=== PATIENT | male | born 1970 | race Caucasian/White ===

== ENCOUNTER 2017-01-26 10:03 | Observation (INO) | payer SELFPAY ==
[2017-01-26] MEDS ORDERED: SUCCINYLCHOLINE CHLORIDE INJ 200 MG/10 ML VIAL ONE (10:11)
[2017-01-26] MEDS ORDERED: DEXAMETHASONE SOD PHOSPHATE INJ 4 MG/1 ML VIAL ONE (10:11)
[2017-01-26] MEDS ORDERED: METOCLOPRAMIDE HCL INJ/PF 10 MG/2 ML SDV ONE (10:11)
[2017-01-26] MEDS ORDERED: NEOSTIGMINE METHYLSULFATE 10 MG/10 ML VIAL ONE (10:11)
[2017-01-26] MEDS ORDERED: KETOROLAC TROMETHAMINE 60 MG/2 ML SDV ONE (10:11)
[2017-01-26] MEDS ORDERED: ROCURONIUM BROMIDE INJ 50 MG/5 ML VIAL IV ONE (10:11)
[2017-01-26] MEDS ORDERED: GLYCOPYRROLATE INJ 0.4 MG/2 ML VIAL ONE (10:11)
[2017-01-26] MEDS ORDERED: ONDANSETRON HCL INJ/PF 4 MG/2 ML SDV ONE (10:11)
[2017-01-26] MEDS ORDERED: LIDOCAINE 2% INJ-PF (20 MG/ML) 10 ML AMPUL ONE (10:11)
--- NOTE | 2017-01-26 10:14 | ER Document Report ---
ED Medical Screen (RME) - General Stated Complaint: ABDOMINAL PAIN Mode of Arrival: Ambulatory Information source: Patient Notes: c/o RUQ abdominal pain that started yesterday at 3 pm that went away and came back. Pain radiates to his back. +vomiting, +blood in vomit, +difficulty breathing, +diarrhea (non-bloody) tried omeprazole, ranitidine, maalox, pepto bismol which is not providing relief. Hx of GERD, told last visit here he had an ulcer, believes it's breathing I have greeted and performed a rapid initial assessment of this patient. A comprehensive ED assessment and evaluation of the patient, analysis of test results and completion of the medical decision making process will be conducted by additional ED providers. TRAVEL OUTSIDE OF THE [place] IN LAST 30 DAYS: No - Related Data Allergies/Adverse Reactions: No Known Allergies Allergy (Verified 01/26/17 10:08) Past Medical History - Past Medical History Cardiac Medical History: Reports: Hx Hypertension Neurological Medical History: Reports: Hx Seizures Past Surgical History: Reports: Hx Appendectomy Physical Exam - Notes Notes: Abdomen: TTP in RUQ with voluntary guarding, remaining abdomen soft with mild TTP
[2017-01-26 10:34] LABS: ABSOLUTE EOSINOPHILS # (AUTO) 0.2 10^3/uL (0.0-0.6); ABSOLUTE LYMPHOCYTES (AUTO) 1.7 10^3/uL (0.5-4.7); ABSOLUTE MONOCYTES (AUTO) 0.7 10^3/uL (0.1-1.4); ABSOLUTE NEUT (AUTO) 4.4 10^3/uL (1.7-8.2); BASOPHILS % (AUTO) 0.4 % (0-2); EOSINOPHILS % (AUTO) 3.5 % (0-6); HEMATOCRIT 43.7 % (37.9-51.0); HEMOGLOBIN 14.7 g/dL (13.5-17.0); HGB HCT DIFFERENCE 0.4; LYMPHOCYTES % (AUTO) 23.4 % (13-45); MEAN CORPUSCULAR HEMOGLOBIN 29.1 pg (27.0-33.4); MEAN CORPUSCULAR HGB CONC 33.7 g/dL (32.0-36.0); MEAN CORPUSCULAR VOLUME 86 fl (80-97); MONOCYTES % (AUTO) 10.4 % (3-13); RED BLOOD COUNT 5.06 10^6/uL (4.35-5.55); RED CELL DISTRIBUTION WIDTH 13.3 % (11.5-14.0); SEGMENTED NEUTROPHILS % (AUTO) 62.3 % (42-78)
[2017-01-26 10:40] LABS: APPEARANCE,URINE CLEAR; BILIRUBIN,URINE NEGATIVE (NEGATIVE); GLUCOSE, URINE NEGATIVE (NEGATIVE); KETONES,URINE NEGATIVE (NEGATIVE); LEUKOCYTE ESTERASE,URINE MODERATE (NEGATIVE); NITRITE,URINE NEGATIVE (NEGATIVE); PROTEIN,URINE NEGATIVE (NEGATIVE); URINE SPECIFIC GRAVITY 1.009; UROBILINOGEN,URINE NEGATIVE mg/dL (<2.0)
[2017-01-26 10:58] LABS: ALANINE AMINOTRANSFERASE 39 U/L (21-72); ALBUMIN 4.4 g/dL (3.5-5.0); ALKALINE PHOSPHATASE 91 U/L (38-126); ANION GAP 12 (5-19); ASPARTATE AMINO TRANSFERASE 19 U/L (17-59); BILIRUBIN,TOTAL 0.5 mg/dL (0.2-1.3); BLOOD UREA NITROGEN 12 mg/dL (7-20); CALCIUM 10.3 mg/dL (8.4-10.2); CARBON DIOXIDE 27 mmol/L (22-30); CHLORIDE 102 mmol/L (98-107); CREATININE RESULT 1.42 mg/dL (0.52-1.25); GLUCOSE 100 mg/dL (75-110); LIPASE 146.3 U/L (23-300); SODIUM 140.7 mmol/L (137-145); TOTAL PROTEIN 7.6 g/dL (6.3-8.2)
[2017-01-26] MEDS ORDERED: POTASSI CL 20 MEQ/D5-1/2NS 1L 1,000 ML IV PRN (13:03)
--- NOTE | 2017-01-26 13:31 | ER Document Report ---
ED General - General Chief Complaint: Abdominal Pain Stated Complaint: ABDOMINAL PAIN Mode of Arrival: Ambulatory TRAVEL OUTSIDE OF THE [place] IN LAST 30 DAYS: No - HPI Patient complains to provider of: abdominal pain Notes: Patient coming in for right upper quadrant abdominal pain ongoing since night prior to arrival with nausea vomiting patient states occurred last night after eating fried chicken. Patient states history of having abdominal pain similar to this in the past. Patient denies any fevers chills diarrhea. Denies any trauma to the area. Patient states most of his not consistent fried fish fried chicken - Related Data Allergies/Adverse Reactions: No Known Allergies Allergy (Verified 01/26/17 10:08) Home Medications: Current Home Medications Omeprazole 20 mg PO DAILY 01/26/17 [History] Past Medical History - General Information source: Patient - Social History Smoking Status: Never Smoker Chew tobacco use (# tins/day): No Frequency of alcohol use: None Drug Abuse: None Family History: Reviewed & Not Pertinent Patient has suicidal ideation: No Patient has homicidal ideation: No - Past Medical History Cardiac Medical History: Reports: Hx Hypertension Neurological Medical History: Reports: Hx Seizures Renal/ Medical History: Denies: Hx Peritoneal Dialysis GI Medical History: Reports: Hx Gastroesophageal Reflux Disease Past Surgical History: Reports: Hx Appendectomy - Immunizations Hx Diphtheria, Pertussis, Tetanus Vaccination: No Review of Systems - Review of Systems Constitutional: No symptoms reported EENT: No symptoms reported Cardiovascular: No symptoms reported Respiratory: No symptoms reported Gastrointestinal: Abdominal pain, Nausea, Vomiting Genitourinary: No symptoms reported Male Genitourinary: No symptoms reported Musculoskeletal: No symptoms reported Skin: No symptoms reported Hematologic/Lymphatic: No symptoms reported Neurological/Psychological: No symptoms reported -: Yes All other systems reviewed and negative Physical Exam - Vital signs Vitals: Temp Pulse Resp BP Pulse Ox 97.4 F 79 16 157/111 H 98 01/26/17 10:09 01/26/17 10:09 01/26/17 10:01/26/17 10:01/26/17 10:09 Interpretation: Normal - General General appearance: Appears well, Alert - HEENT Head: Normocephalic, Atraumatic Eyes: Normal Pupils: PERRL - Respiratory Respiratory status: No respiratory distress Chest status: Nontender Breath sounds: Normal Chest palpation: Normal - Cardiovascular Rhythm: Regular Heart sounds: Normal auscultation Murmur: No - Abdominal Inspection: Normal Distension: No distension Bowel sounds: Normal Tenderness: Tender - Right upper quadrant, Mcintyre's sign, Guarding - Voluntary. No: McBurney's point, Rebound Organomegaly: No organomegaly - Back Back: Normal, Nontender - Extremities General upper extremity: Normal inspection, Nontender, Normal color, Normal ROM , Normal temperature General lower extremity: Normal inspection, Nontender, Normal color, Normal ROM , Normal temperature, Normal weight bearing. No: Austen's sign - Neurological Neuro grossly intact: Yes Cognition: Normal Orientation: AAOx4 [place] Coma Scale Eye Opening: Spontaneous [place] Coma Scale Verbal: Oriented [place] Coma Scale Motor: Obeys Commands [place] Coma Scale Total: 15 Speech: Normal Motor strength normal: LUE, RUE, LLE, RLE Sensory: Normal - Psychological Associated symptoms: Normal affect, Normal mood - Skin Skin Temperature: Warm Skin Moisture: Dry Skin Color: Normal Course - Re-evaluation Re-evalutation: 01/26/17 13:[address] scan of the abdomen shows gallstones more likely patient is having right upper quadrant pain due to his continued diet out fried food. Patient continues to have pain. I did discuss the results of the CAT scan showing hydronephrosis due to a indwelling ureteral stent patient states has been there for 5 years. Discuss with [facility] urology Dr. Pagan who states that he would be glad to see the patient in follow-up as outpatient. I did contact surgeon on-call currently waiting for his arrival and evaluation of the patient. 01/26/17 14:01 Surgeon states would take the patient to surgery to have his gallbladder removed. Patient should follow-up with the stated urologist Dr. Rafal Pagan of [facility] urology Address: [address] [place] [id number] For further evaluation of his ureteral stent. 01/26/17 18:33 - Vital Signs Vital signs: Temp Pulse Resp BP Pulse Ox 97.8 F 60 18 124/94 H 95 01/26/17 18:10 01/26/17 18:10 01/26/17 18:10 01/26/17 18:10 01/26/17 18:10 - Laboratory Result Diagrams: 01/26/17 10:17 01/26/17 10:17 Laboratory results interpreted by me: 01/26/17 01/26/17 10:17 10:17 Creatinine 1.42 H Est GFR (Non-Af Amer) 53 L Calcium 10.3 H Urine Blood SMALL H Ur Leukocyte Esterase MODERATE H Discharge - Discharge Clinical Impression: Recurrent biliary colic, indwelling ureter stent Condition: Good Disposition: ADMITTED OBSERVATION Admitting Provider: Surgicalist - [facility] Admitted: OR
[2017-01-26] MEDS ORDERED: NORMAL SALINE 1000 ML 1,000 ML IV ONE ×2 (13:58→17:17)
[2017-01-26] MEDS ORDERED: CEFAZOLIN 2 GM/D5W RTU 50 ML IV ONE (13:58)
[2017-01-26] MEDS ORDERED: BUPIVACAINE HCL 0.25% /EPINEPHRINE INJ/PF 30 ML SDV ONE (14:21)
[2017-01-26] MEDS ORDERED: ONDANSETRON HCL INJ/PF 4 MG/2 ML SDV IV PRN ×2 (14:35→17:00)
[2017-01-26] MEDS ORDERED: FENTANYL CITRATE INJ/PF 100 MCG/2 ML AMPUL IV PRN ×3 (14:35)
[2017-01-26] MEDS ORDERED: DIPHENHYDRAMINE HCL 50 MG/ML VIAL IV PRN (14:35)
[2017-01-26] MEDS ORDERED: PROMETHAZINE HCL INJ 25 MG/1 ML VIAL IV PRN ×2 (14:35)
[2017-01-26] MEDS ORDERED: MORPHINE SULFATE 10 MG/ML INJ IV PRN ×2 (14:35→17:00)
[2017-01-26] MEDS ORDERED: MEPERIDINE HCL/PF INJ 25 MG/1 ML DISP.SYRIN IV PRN (14:35)
[2017-01-26] MEDS ORDERED: FENTANYL CITRATE INJ/PF 250 MCG/5 ML AMPULE ONE (15:02)
[2017-01-26] MEDS ORDERED: PROPOFOL INJ 200 MG/20 ML VIAL IV ONE (15:03)
[2017-01-26] MEDS ORDERED: DEXMEDETOMIDINE INJ 80 MCG/20 ML VIAL IV ONE (15:03)
[2017-01-26] MEDS ORDERED: MIDAZOLAM 2 MG/2 ML INJ ONE (15:03)
[2017-01-26] MEDS ORDERED: EPHEDRINE SULFATE INJ 50 MG/1 ML AMPULE ONE (15:03)
[2017-01-26] MEDS ORDERED: ACETAMINOPHEN 100 ML IV ONE (15:03)
--- NOTE | 2017-01-26 15:07 | HISTORY AND PHYSICAL E ---
History and Physical NAME: TIA BROUSSARD : 1970 AGE: 46Y ADMITTED: 01/26/2017 ROOM: ED19 HISTORY OF PRESENT ILLNESS: The patient is a 46-year-old gentleman who presents with a chief complaint of right upper quadrant abdominal pain exacerbated by fatty meals which are his staple. He presented to the emergency department with increasing abdominal pain which began last evening and would not radha. He has not eaten since last evening. He has had multiple episodes of this right upper quadrant abdominal pain. He denies jaundice, jumana-colored stools or colored urine. PAST MEDICAL HISTORY: Significant for: 1. Lithotripsy approximately 5 or 6 years ago and he still has a ureteral stent in place and the emergency room physician here has consulted with a urologist who has agreed to see the patient subsequently for discussion of removal of this ureteral stent. 2. History of seizures which he states have not occurred since he was 16 years old. 3. History also of acid reflux for which he takes omeprazole. He states that at some time in the last few years, someone has looked at his stomach and prescribed omeprazole. ALLERGIES: No known medical allergies. FAMILY AND SOCIAL HISTORY: Otherwise noncontributory. 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 REVIEW OF SYSTEMS: The patient denies any problems with his head, neck, ears, throat, chest, cardiac, pulmonary or neurologic disease. 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 However, this has not caused him any problems throughout life. MEDICATIONS: Omeprazole is the only medication taken at home. PHYSICAL EXAMINATION: GENERAL: A pleasant gentleman in no acute distress. He is markedly uncomfortable regarding his right upper quadrant. HEAD AND NECK: Grossly unremarkable. CHEST: Clear to auscultation and percussion. CARDIAC: Exam is without murmur, gallop, or rub. ABDOMEN: Soft. Markedly tender in the right upper quadrant with positive rebound, but no evidence of diffuse peritonitis. There is a well-healed low midline laparotomy scar status post perforated appendicitis. Examination otherwise unremarkable. EXTREMITIES: There is some slight disparity in calf size with the left being slightly smaller than the right, but again the patient has no evidence of motor or neurologic or vascular deficit. DATA BASE: White count 7000, hemoglobin 14.7, hematocrit 43.7. Sodium 147, potassium 5, chloride 102, CO2 of 27, BUN 12, creatinine 1.42. Liver function studies and lipase are within normal limits. The patient has a gallbladder ultrasound performed today which reveals cholelithiasis with no evidence of pericholecystic fluid or wall thickening. This is corroborated by CT scan today which reveals again cholelithiasis without overt inflammatory change. Incidentally again noted is the left ureteral stent and again, this has been addressed by the emergency room physician and arrangements are being made to have this removed by urologist in outpatient setting soon. IMPRESSION: A 46-year-old gentleman with acute and chronic cholelithiasis causing increasing right upper quadrant abdominal pain. RECOMMENDATION AND PLAN: The recommendation and plan at this time is for laparoscopic possible open cholecystectomy. The patient understands the risks and alternatives of laparoscopic and possible open cholecystectomy and wishes to proceed. He received 2 g of Ancef preoperatively, mechanical prophylaxis for DVT is in progress and the patient will receive Protonix in the perioperative period. DICTATING PHYSICIAN: SINDY MURRAY M.D. [id number] PHY#: [id number] ID: [id number] JOB#: [id number] ACCT: [id number] cc:Zechariah PA MD, M.D. >
--- NOTE | 2017-01-26 15:07 | HISTORY AND PHYSICAL E ---
History and Physical NAME: TIA BROUSSARD : 1970 AGE: 46Y ADMITTED: 01/26/2017 ROOM: ED19 HISTORY OF PRESENT ILLNESS: The patient is a 46-year-old gentleman who has had intermittent and increasing frequency abdominal pain in the right quadrant, especially after eating fried foods which are his staple. He presented to the emergency department where ultrasound collaborates suspicion of cholelithiasis. He is having increasing pain since yesterday and has not eaten since last evening. He denied history of fever or chills. He states he has had END OF DICTATION interrupted see second dictation DICTATING PHYSICIAN: SINDY MURRAY M.D. [id number] PHY#: [id number] ID: [id number] JOB#: [id number] ACCT: [id number] cc:Zechariah PA MD, M.D. > MTDD
[2017-01-26] MEDS ORDERED: CEFAZOLIN INJ 1 GM VIAL ONE (15:34)
[2017-01-26] MEDS ORDERED: ALBUTEROL SULFATE HFA (90 MCG/PUFF) 200 PUFF/8.5 GM MDI IH ONE (15:35)
--- NOTE | 2017-01-26 17:53 | OPERATIVE REPORT E ---
Operative Report NAME: TIA BROUSSARD : 1970 AGE: 46Y DATE OF SURGERY: 01/26/2017 ROOM: ED19 PREOPERATIVE DIAGNOSES: 1. Cholelithiasis. 2. Cholecystitis. POSTOPERATIVE DIAGNOSES: 1. Cholelithiasis. 2. Cholecystitis. OPERATION: Laparoscopic cholecystectomy. SURGEON: LESLYE MURRAY M.D. ANESTHESIA: General via endotracheal tube. PROCEDURE: The patient was taken to the operating room after informed consent, positive identification, and time-out. The abdomen was prepped and draped in the standard fashion with the patient under general endotracheal inhalational anesthesia and entered through a 2 cm incision above the umbilicus and carried down through the deep tissues with Metzenbaum scissors and Bovie cautery. The fascia was entered and the peritoneum was entered and the abdominal cavity was digitally explored. There were adhesions inferior to the incision site but none at the site of the incisions. A Bryan cannula placed into the abdomen and insufflated with CO2 with the Bryan secured to the #1 Prolene pursestring suture. The camera was inserted and 3 of the trocars were placed in the right upper quadrant under direct visual observation. The scope was placed into the superior subxiphoid port, and inspection of the insertion site was noted. There was no injury to the surrounding tissues though there were adhesion of small bowel inferior to the port site. The patient was placed in the left shoulder down Trendelenburg position, and the gallbladder able to be freed of multiple fatty omental cakes by positioning and gently moving the omentum inferiorly. This provided access to the gallbladder which was placed under traction in the right upper abdomen. The neck of the gallbladder was localized and then working from the neck of the gallbladder to the midline, the cystic duct and cystic arteries were localized and dissected freed, positively identified, circumferentially dissected, and the critical view was assured. The cystic duct and cystic artery were divided in continuity with hemoclips, 3 proximally and 2 distally and the gallbladder was excised with the Bovie cautery and removed through the subxiphoid port into the EndoCatch bag. The wound was irrigated with copious amounts of saline solution. Sponge and needle counts were correct. The trocar sites were closed with #1 Prolene sutures. The skin was closed with geovanna after the deep tissues were injected with 0.25% Marcaine with epinephrine solution. Meticulous hemostasis was assured. The dressing was placed and before the patient was removed from the operating room it was noted that there was bleeding from a 5 mm port site. This was stayed with pressure and then using a sterile technique and Betadine solution a 3-0 nylon [id number] suture was used over this port site and again hemostasis was assured. The patient was taken to the recovery room in satisfactory condition. ESTIMATED BLOOD LOSS: Approximately 20 mL. COUNTS: Sponge and needle counts were correct. DICTATING PHYSICIAN: SINDY MURRAY M.D. [id number] PHY#: [id number] ID: [id number] JOB#: [id number] ACCT: [id number] cc:LESLYE MURRAY M.D. > MTDD
[2017-01-26] MEDS: PANTOPRAZOLE SODIUM 40 MG VIAL IV SCH (22:17)
[2017-01-26] MEDS: OXYCODONE-ACETAMINOPHEN 5-325 MG TABLET PO PRN (22:36)
[2017-01-27] MEDS: OXYCODONE-ACETAMINOPHEN 5-325 MG TABLET PO PRN (03:13)
[2017-01-27] MEDS: PANTOPRAZOLE SODIUM 40 MG VIAL IV SCH (09:21)
[2017-01-27] MEDS ORDERED: MAG HYDROX/AL HYDROX/SIMETH SUSP 30 ML UDCUP PO ONE (12:00)
[2017-01-27 12:55] VITALS: BP 124/69
--- NOTE | 2017-01-27 13:18 | DISCHARGE SUMMARY E ---
Discharge Summary NAME: TIA BROUSSARD : 1970 AGE: 46Y ADMITTED: 01/26/2017 DISCHARGED: 01/27/2017 ADMITTING DIAGNOSIS: Acute cholecystitis and cholelithiasis. DISCHARGE DIAGNOSIS: Status post laparoscopic cholecystectomy. HOSPITAL COURSE: Hospital course was unremarkable. He was taken the operating room from the emergency department and laparoscopic cholecystectomy was undertaken without complication. On the morning of discharge he is active and ambulatory, tolerating a regular diet, and wishing to be discharged. He has some ongoing medical problems including a ureteral stent which has been in place in the left ureteropelvic junction for 5 years. Arrangements were made by the emergency physician doctor to have the patient seen in consultation by a urologist, and the patient is provided with this information. He also has an ongoing problem of acid reflux and states that he frequently will vomit but denies vomiting up blood. He is taking omeprazole and received Protonix prophylaxis during his hospital stay. He is advised to follow up with his family physician and arrangements have been previously made for this. At the time of discharge, again he is active and ambulatory without any complication related to his cholecystitis. He will be seen in the office with Dr. Jeffery in approximately 1 week. He was provided with a prescription for Percocet for analgesia and understanding he should not drive while taking this medication. He is aware he may contact us immediately should he have any questions or problems. DICTATING PHYSICIAN: SINDY MURRAY M.D. [id number] PHY#: [id number] ID: [id number] JOB#: [id number] ACCT: [id number] cc:[facility], LESLYE MENDOZA MD, M.D, M.D., E. R. >
== END 2017-01-27 13:00 | disposition home or self-care (01) ==
LOC: OROUT 10:03 → EH 13:03 → INTOOBSV 14:44 → EH 14:44 → UNDOADMOB 14:44 → 4S 17:59
PROC: 3E033GC Introduction of Other Therapeutic Substance into Peripheral Vein, Percutaneous Approach (ICD-10-PCS; 2017-01-26)
PROC: 3E033GC Introduction of Other Therapeutic Substance into Peripheral Vein, Percutaneous Approach (ICD-10-PCS; 2017-01-26)
PROC: 0FT44ZZ Resection of Gallbladder, Percutaneous Endoscopic Approach (ICD-10-PCS; principal; 2017-01-26 15:00)
DX: K80.12 Calculus of gallbladder with acute and chronic cholecystitis without obstruction (principal); K21.9 Gastro-esophageal reflux disease without esophagitis; I10 Essential (primary) hypertension
CPT/HCPCS: 99285; 96365; 96366; 36415; 83690; 85025; 80053; 81001; 88304 ×2; 76705; 74176; 94799 ×2; 47562; J2250; J3490 ×5; J0690; J1100; J1885; J3010; J2765; J2270; J3480; S0164 ×2; J0330; J2405 ×2; J7030; J2704; J0131; 790

== ENCOUNTER 2017-02-01 10:39 | Observation (INO) | payer SELFPAY ==
--- NOTE | 2017-02-01 10:49 | ER Document Report ---
ED Medical Screen (RME) - General Stated Complaint: ABDOMINAL PAIN Notes: 46 yo male c/o mid abdominal pain since this morning. pt is 7 days s/p sergio ( suregery done here @ [facility]) has been having mild pain since surgery, but pain acutely intensified this morning. + nausea, no vomiting. decreased urinary output. no fever. abdomen is soft with generalized tenderness. echymosis noted at laproscopic incision sites. TRAVEL OUTSIDE OF THE [place] IN LAST 30 DAYS: No - Related Data Allergies/Adverse Reactions: No Known Allergies Allergy (Verified 01/26/17 10:08) Past Medical History - Past Medical History Cardiac Medical History: Reports: Hx Hypertension Neurological Medical History: Reports: Hx Seizures Renal/ Medical History: Denies: Hx Peritoneal Dialysis GI Medical History: Reports: Hx Gastroesophageal Reflux Disease Psychiatric Medical History: Reports: Hx Depression Past Surgical History: Reports: Hx Appendectomy - Immunizations Hx Diphtheria, Pertussis, Tetanus Vaccination: No Physical Exam - Vital signs Vitals: Temp Pulse Resp BP Pulse Ox 97.5 F 78 16 137/98 H 98 02/01/17 10:42 02/01/17 10:42 02/01/17 10:42 02/01/17 10:42 02/01/17 10:42 Course - Vital Signs Vital signs: Temp Pulse Resp BP Pulse Ox 97.5 F 78 16 137/98 H 98 02/01/17 10:42 02/01/17 10:42 02/01/17 10:42 02/01/17 10:42 02/01/17 10:42
[2017-02-01 11:20] LABS: APPEARANCE,URINE CLEAR; BILIRUBIN,URINE NEGATIVE (NEGATIVE); GLUCOSE, URINE NEGATIVE (NEGATIVE); KETONES,URINE NEGATIVE (NEGATIVE); LEUKOCYTE ESTERASE,URINE MODERATE (NEGATIVE); NITRITE,URINE NEGATIVE (NEGATIVE); PROTEIN,URINE 30 mg/dL (NEGATIVE); URINE SPECIFIC GRAVITY 1.012; UROBILINOGEN,URINE NEGATIVE mg/dL (<2.0)
[2017-02-01 11:23] LABS: ABSOLUTE EOSINOPHILS # (AUTO) 0.2 10^3/uL (0.0-0.6); ABSOLUTE LYMPHOCYTES (AUTO) 1.2 10^3/uL (0.5-4.7); ABSOLUTE MONOCYTES (AUTO) 0.6 10^3/uL (0.1-1.4); ABSOLUTE NEUT (AUTO) 4.2 10^3/uL (1.7-8.2); BASOPHILS % (AUTO) 0.4 % (0-2); EOSINOPHILS % (AUTO) 2.9 % (0-6); HEMATOCRIT 43.3 % (37.9-51.0); HEMOGLOBIN 14.6 g/dL (13.5-17.0); HGB HCT DIFFERENCE 0.5; MEAN CORPUSCULAR HEMOGLOBIN 29.1 pg (27.0-33.4); MEAN CORPUSCULAR HGB CONC 33.6 g/dL (32.0-36.0); MEAN CORPUSCULAR VOLUME 87 fl (80-97); MONOCYTES % (AUTO) 9.6 % (3-13); SEGMENTED NEUTROPHILS % (AUTO) 67.1 % (42-78); WHITE BLOOD COUNT 6.2 10^3/uL (4.0-10.5)
[2017-02-01 11:43] LABS: ALBUMIN 4.3 g/dL (3.5-5.0); ALKALINE PHOSPHATASE 303 U/L (38-126); ANION GAP 11 (5-19); ASPARTATE AMINO TRANSFERASE 684 U/L (17-59); BILIRUBIN,DIRECT 0.8 mg/dL (0.0-0.3); BILIRUBIN,TOTAL 2.9 mg/dL (0.2-1.3); BLOOD UREA NITROGEN 12 mg/dL (7-20); CALCIUM 10.6 mg/dL (8.4-10.2); CARBON DIOXIDE 25 mmol/L (22-30); CHLORIDE 102 mmol/L (98-107); CREATININE RESULT 1.18 mg/dL (0.52-1.25); GLUCOSE 101 mg/dL (75-110); LIPASE 187.7 U/L (23-300); POTASSIUM 4.3 mmol/L (3.6-5.0); SODIUM 138.1 mmol/L (137-145); TOTAL PROTEIN 7.6 g/dL (6.3-8.2)
[2017-02-01 11:50] LABS: ALANINE AMINOTRANSFERASE 1018 U/L (21-72)
[2017-02-01] MEDS ORDERED: NORMAL SALINE 1000 ML 1,000 ML IV ONE (12:20)
--- NOTE | 2017-02-01 12:31 | ER Document Report ---
ED GI/ - General Chief Complaint: Abdominal Pain Stated Complaint: ABDOMINAL PAIN Notes: Patient is complaining of severe pain of his abdomen when he awakened this morning. Patient had his gallbladder removed by laparoscopic procedure here 6 days ago, last . Current pain is on the right side of his abdomen. Denies fever. Has had nausea but not vomiting. Some diarrhea, the last time was yesterday evening. Seemed to be doing well except he hasn't had an appetite and not eating because the food didn't seem to settle right on his stomach. Has noticed his urine appears darker and it's hard to get urine flow.. TRAVEL OUTSIDE OF THE [place] IN LAST 30 DAYS: No - Related Data Allergies/Adverse Reactions: No Known Allergies Allergy (Verified 02/01/17 10:46) Past Medical History - Social History Smoking Status: Never Smoker Chew tobacco use (# tins/day): No Frequency of alcohol use: None Drug Abuse: None Family History: Reviewed & Not Pertinent Patient has suicidal ideation: No Patient has homicidal ideation: No - Past Medical History Cardiac Medical History: Reports: Hx Hypertension Neurological Medical History: Reports: Hx Seizures Renal/ Medical History: Reports: Hx Kidney Stones - Had surgery GI Medical History: Reports: Hx Gastroesophageal Reflux Disease Psychiatric Medical History: Reports: Hx Depression Past Surgical History: Reports: Hx Appendectomy - Ruptured, Hx Cholecystectomy, Hx Herniorrhaphy, Other - For kidney stone - Immunizations Hx Diphtheria, Pertussis, Tetanus Vaccination: Yes Review of Systems - Review of Systems Notes: REVIEW OF SYSTEMS: CONSTITUTIONAL : Denies fever. EENT: Denies eye, ear, nose or mouth or throat pain or other symptoms. CARDIOVASCULAR: Denies chest pain. RESPIRATORY: Denies cough, chest congestion, or shortness of breath. GASTROINTESTINAL: See history of present illness. GENITOURINARY: Has difficulty urinating. Urine amount has been decreased and color is darker.. MUSCULOSKELETAL: Denies back or neck pain. Denies joint pain or swelling. SKIN: Denies rash or skin lesions. Bruising from recent laparoscopic surgery. NEUROLOGICAL: Denies LOC or altered mental status. Denies headache. Denies sensory loss or motor deficits. ALL OTHER SYSTEMS REVIEWED AND NEGATIVE. Physical Exam - Vital signs Vitals: Temp Pulse Resp BP Pulse Ox 97.5 F 78 16 137/98 H 98 02/01/17 10:42 02/01/17 10:42 02/01/17 10:42 02/01/17 10:42 02/01/17 10:42 Interpretation: Normal - Notes Notes: PHYSICAL EXAMINATION: GENERAL: Well-appearing, in no acute distress. Appears uncomfortable, declines pain medicines. Vital signs are all normal. HEAD: Atraumatic, normocephalic. NECK: Normal range of motion, supple. LUNGS: Breath sounds clear and equal bilaterally. HEART: Regular rate and rhythm without murmurs. ABDOMEN: Incisions from recent laparoscopic surgery. Significant bruising around the site in the epigastrium and in the lower mid abdomen. Tender mostly on the right side of the abdomen. No masses felt. No guarding. No bruits heard. BACK: No tenderness throughout entire back. EXTREMITIES: Normal range of motion without pain. NEUROLOGICAL: Normal speech, normal gait. Normal sensory, motor, and reflex exams. Awake, alert, and oriented x3. SKIN: Warm, dry, no rashes. Course - Re-evaluation Re-evalutation: 02/01/17 13:37 Discussed appropriate studies with the surgeon quality control assessor, Dr. Arteaga, and ordered a CT scan with IV contrast. 02/01/17 16:50 CT scan did not show any fluid accumulation or any other abnormality except postsurgical changes. We were going to order an MRI to look for a retained stone in the bile duct, but the patient still has his abdominal wall metal geovanna. There was concern that these geovanna might become overheated. In the meantime, Dr. Jeffery spoke with Dr. Arteaga and then spoke with Dr. Saab, who agreed to do an ERCP on the patient. So, the patient is going to be admitted for that procedure and not get the MRI. - Vital Signs Vital signs: Temp Pulse Resp BP Pulse Ox 97.5 F 78 16 137/98 H 98 02/01/17 10:42 02/01/17 10:42 02/01/17 10:42 02/01/17 10:42 02/01/17 10:42 - Laboratory Result Diagrams: 02/01/17 10:50 02/01/17 10:50 Laboratory results interpreted by me: 02/01/17 02/01/17 10:50 10:55 Calcium 10.6 H Total Bilirubin 2.9 H Direct Bilirubin 0.8 H AST 684 H ALT 1018 H Alkaline Phosphatase 303 H Urine Protein 30 H Urine Blood LARGE H Ur Leukocyte Esterase MODERATE H - Diagnostic Test Radiology reviewed: Image reviewed, Reports reviewed - CT scan of the abdomen and pelvis showed no abnormality, specifically no fluid accumulation. Discharge - Discharge Clinical Impression: Elevated LFTs Abdominal pain Qualifiers: Abdominal location: generalized Qualified Code(s): R10.84 - Generalized abdominal pain Condition: Stable Disposition: ADMITTED OBSERVATION Admitting Provider: Surgicalist Unit Admitted: Surgical Floor
[2017-02-01] MEDS: CEFAZOLIN 1 GM/D5W RTU 50 ML IV SCH (18:29)
[2017-02-01] MEDS ORDERED: NORMAL SALINE 1000 ML 1,000 ML IV PRN (22:31)
[2017-02-01] MEDS ORDERED: ONDANSETRON HCL INJ/PF 4 MG/2 ML SDV IV PRN (22:31)
[2017-02-01] MEDS ORDERED: HYDROMORPHONE HCL INJ/PF 2 MG/ML AMPULE IV PRN ×2 (22:35)
--- NOTE | 2017-02-01 23:38 | HISTORY AND PHYSICAL E ---
History and Physical NAME: TIA BROUSSARD : 1970 AGE: 46Y ADMITTED: 02/01/2017 ROOM: 530 REASON FOR ADMISSION: Recent laparoscopic cholecystectomy with now elevated liver function test. HISTORY OF PRESENT ILLNESS: The patient is a 46-year-old male who was admitted to the hospital 6 days ago with acute cholecystitis. He has undergone a laparoscopic cholecystectomy and was discharged home the next day. Since the surgery, he has developed nausea, he is not hungry or eating much. He has had minimal constipation and no diarrhea. He has had continued abdominal pain mainly on either side of the midline and at the incision sites. He states that his urine is orange in color. He denies any peptic ulcer disease but does have gastroesophageal reflux symptoms being treated with PPIs. Because of the ongoing symptoms, he came to the emergency room to be evaluated. PAST SURGICAL HISTORY: 1. Laparoscopic cholecystectomy. 2. Open appendectomy. 3. Inguinal hernia repair. 4. History of kidney stones status post lithotripsy and stent placement. He was supposed to follow up with Urology in regard to having this removed. PAST MEDICAL HISTORY: Gastroesophageal reflux disease. HABITS: The patient denies any smoking, alcohol, or drug use. MEDICATIONS: 1. Omeprazole. 2. Pain medication. SOCIAL HISTORY: The patient is . FAMILY HISTORY: Noncontributory. REVIEW OF SYSTEMS: CONSTITUTIONAL: Not feeling hungry. GASTROINTESTINAL: Nausea, abdominal pain. A 12-point review of systems was obtained with pertinent positives discussed and all others being negative. PHYSICAL EXAMINATION: VITAL SIGNS: Temperature is 97.6, pulse 67, blood pressure 136/92. GENERAL: The patient is lying in bed. He is cooperative and not in any significant distress at the current time. EYES: Minimally icteric. NECK: No lymphadenopathy. HEART: Regular. LUNGS: Clear. BACK: Nontender. ABDOMEN: Soft, tender mildly in the upper abdominal region. His incisions are healing well without any evidence of infection. There is mild bruising around them. EXTREMITIES: No edema or cyanosis. NEUROLOGIC: The patient appears to be neurologically intact without any deficits. PSYCHIATRIC: The patient is coherent, cooperative, and appears to answer questions fully. DIAGNOSTIC DATA: White blood cell count is 6.2, hemoglobin 14.6. Total bilirubin 2.9, direct 0.8. AST is 684, ALT of 1018. Alkaline phosphatase is 303. CT scan of the abdomen and pelvis does not show any fluid collection or any other significant abnormality. He does have a left ureteral stent. ASSESSMENT: 1. Recent laparoscopic cholecystectomy for acute cholecystitis with the patient continuing not feeling well and now with elevated liver function tests. CT scan does not show any bile leak at this time. We have discussed this with Gastroenterology in which always the possibility of retained common bile duct stone versus bile duct injury. He will undergo an ERCP in evaluation of this issue. 2. Gastroesophageal reflux disease, on medications. 3. History of kidney stones with lithotripsy and stent placement with stent still being in place. PLAN: 1. The patient will be admitted to the hospital. 2. N.P.O. 3. IV fluids. 4. IV antibiotics. 5. ERCP with GI consult. 6. He will need to follow up with Urology as an outpatient. 7. Followup liver function test in the a.m. DICTATING PHYSICIAN: PAUL ANAYA M.D. [id number] PHY#: [id number] ID: [id number] JOB#: [id number] ACCT: [id number] cc:PAUL ANAYA M.D. > MTDD
[2017-02-02] MEDS: CEFAZOLIN 1 GM/D5W RTU 50 ML IV SCH ×3 (05:14→22:30)
[2017-02-02 05:31] LABS: HEMATOCRIT 40.8 % (37.9-51.0); HEMOGLOBIN 13.8 g/dL (13.5-17.0); HGB HCT DIFFERENCE 0.6; MEAN CORPUSCULAR HEMOGLOBIN 29.1 pg (27.0-33.4); MEAN CORPUSCULAR HGB CONC 33.9 g/dL (32.0-36.0); MEAN CORPUSCULAR VOLUME 86 fl (80-97); RED BLOOD COUNT 4.75 10^6/uL (4.35-5.55); RED CELL DISTRIBUTION WIDTH 14.2 % (11.5-14.0); WHITE BLOOD COUNT 5.5 10^3/uL (4.0-10.5)
[2017-02-02 05:50] LABS: BLOOD UREA NITROGEN 10 mg/dL (7-20); CALCIUM 9.8 mg/dL (8.4-10.2); CREATININE RESULT 1.08 mg/dL (0.52-1.25); GLUCOSE 98 mg/dL (75-110)
[2017-02-02 05:51] LABS: ALANINE AMINOTRANSFERASE 857 U/L (21-72); ALKALINE PHOSPHATASE 288 U/L (38-126); ANION GAP 11 (5-19); ASPARTATE AMINO TRANSFERASE 361 U/L (17-59); BILIRUBIN,TOTAL 2.4 mg/dL (0.2-1.3); CARBON DIOXIDE 24 mmol/L (22-30); CHLORIDE 106 mmol/L (98-107); POTASSIUM 4.1 mmol/L (3.6-5.0); SODIUM 140.7 mmol/L (137-145); TOTAL PROTEIN 6.9 g/dL (6.3-8.2)
--- NOTE | 2017-02-02 08:34 | PDOC PROGRESS REPORT ---
Subjective Progress Note for:: 02/02/17 Subjective:: Feels okay. Some mild the upper abdominal discomfort. Physical Exam Vital Signs: Temp Pulse Resp BP Pulse Ox 98.0 F 85 17 114/79 99 02/02/17 03:23 02/02/17 03:23 02/02/17 03:23 02/02/17 03:23 02/02/17 03:23 Intake & Output 02/01/17 02/02/17 02/03/17 06:59 06:59 06:59 Intake Total 0 Balance 0 Weight 103.3 kg General appearance: PRESENT: no acute distress, cooperative Respiratory exam: PRESENT: clear to auscultation grayson Cardiovascular exam: PRESENT: RRR GI/Abdominal exam: PRESENT: other - Soft, nondistended, very mild upper abdominal tenderness. Results Laboratory Results: 02/02/17 04:52 02/02/17 04:52 02/02/17 02/02/17 04:52 04:52 WBC 5.5 RBC 4.75 Hgb 13.8 Hct 40.8 MCV 86 MCH 29.1 MCHC 33.9 RDW 14.2 H Plt Count 226 Sodium 140.7 Potassium 4.1 Chloride 106 Carbon Dioxide 24 Anion Gap 11 BUN 10 Creatinine 1.08 Est GFR ( Amer) > 60 Est GFR (Non-Af Amer) > 60 Glucose 98 Calcium 9.8 Total Bilirubin 2.4 H AST 361 H ALT 857 H Alkaline Phosphatase 288 H Total Protein 6.9 Albumin 4.0 Impressions: Abdomen/Pelvis CT 02/01/17 12:20 IMPRESSION: Post recent cholecystectomy without fluid or inflammatory change in the gallbladder fossa No abscess or hematoma along the anterior abdominal wall laparoscopic trocar tracks. Left double-J stent in good positioning, no change in left lower pole 10 mm calculus or left mid 3rd ureter tiny stones. Stable marked distention of the left renal pelvis and calices compared to 01/26/2017 CT Assessment & Plan - Diagnosis (1) Elevated LFTs Is this a current diagnosis for this admission?: YesPlan: Status post laparoscopic cholecystectomy a week ago. Pending ERCP today.
[2017-02-02] MEDS: FAMOTIDINE INJ/PF 20 MG/2 ML SDV IV SCH ×2 (10:51→22:30)
[2017-02-02] MEDS ORDERED: NALOXONE HCL INJ/PF 0.4 MG/1 ML SDV ONE (17:16)
[2017-02-02] MEDS ORDERED: MIDAZOLAM 2 MG/2 ML INJ ONE (17:16)
[2017-02-02] MEDS ORDERED: PROMETHAZINE HCL INJ 25 MG/1 ML VIAL ONE (17:16)
[2017-02-02] MEDS ORDERED: GLUCAGON,HUMAN RECOMB 1 MG INJ ONE (17:17)
[2017-02-02] MEDS ORDERED: EPINEPHRINE INJ 1 MG/10 ML DISP.SYRIN ONE (17:17)
[2017-02-02] MEDS ORDERED: FLUMAZENIL INJ 0.5 MG/5 ML VIAL IV ONE (17:17)
[2017-02-02] MEDS: MIDAZOLAM 2 MG/2 ML INJ ONE ×3 (19:32→19:40)
[2017-02-02] MEDS: FENTANYL CITRATE INJ/PF 100 MCG/2 ML AMPUL ONE ×2 (19:34→19:38)
--- NOTE | 2017-02-02 19:35 | PDOC CONSULTATION ---
Consultation Consult Date: 02/01/17 History of Present Illness Admission Date/PCP: 02/01/17 22:31 History of Present Illness: This is a 46-year-old patient was admitted on 02/01/2017 with abdominal pain, jaundice, and abnormal LFTs. He was in the hospital recently and had cholecystectomy on 01/27/2017. He had presented earlier with recurrent abdominal pain. He had multiple gallstones on ultrasound and CAT scan. He presented back to the emergency room with abdominal pain and nausea. His LFTs were normal on 01/26/17 but upon presentation this time his bilirubin was 2.9 with AST of 684, ALTs 1018 and alkaline phosphatase of 303. His lipase was normal. A repeat CAT scan during this admission showed no fluid collection in the gallbladder fossa Past Medical History Cardiac Medical History: Reports: Hypertension Neurological Medical History: Denies: Seizures GI Medical History: Reports: Gastroesophageal Reflux Disease Psychiatric Medical History: Reports: Depression Past Surgical History Past Surgical History: Reports: Appendectomy - Ruptured, Cholecystectomy, Herniorrhaphy, Other - For kidney stone Social History Smoking Status: Never Smoker Frequency of Alcohol Use: None Hx Recreational Drug Use: No Drugs: None Hx Prescription Drug Abuse: No - Advance Directive Resuscitation Status: Full Code Family History Family History: Reviewed & Not Pertinent Parental Family History Reviewed: No Children Family History Reviewed: NA Sibling(s) Family History Reviewed.: NA Medication/Allergy Home Medications: Omeprazole 40 mg PO DAILY 02/01/17 Oxycodone HCl/Acetaminophen [Percocet 5-325 mg Tablet] 1 tab PO Q4HP PRN Sucralfate [Carafate 1 gm Tablet] 1 gm PO AC 02/01/17 Sucralfate [Carafate 1 gm Tablet] 1 gm PO QHS 02/01/17 Allergies/Adverse Reactions: No Known Allergies Allergy (Verified 02/01/17 10:46) Review of Systems All systems: reviewed and no additional remarkable complaints except as stated Physical Exam Vital Signs: Temp Pulse Resp BP Pulse Ox 97.8 F 86 21 H 130/93 H 96 02/02/17 17:02 02/02/17 19:28 02/02/17 19:28 02/02/17 19:28 02/02/17 19:28 Intake & Output 03/08/17 03/09/17 03/10/17 06:59 06:59 06:59 Intake Total 0 Balance 0 Weight 103.3 kg Exam: General: Patient is alert and looks well. HEENT: There is no pallor or jaundice. PERRLA. Oropharynx normal Respiratory: No chest deformity. No respiratory distress. Chest wall palpitation was unremarkable. Breath sounds were normal Cardiovascular: Heart sounds 1 and 2 normal with no murmurs. Abdominal: Obese. There are geovanna from his recent surgery. Soft and nontender. Liver and spleen not palpable. No ascites demonstrated. Bowel sounds active. Rectal examination was deferred. Extremities: No edema Neurological: Alert and oriented x4. Grossly nonfocal. Normal speech Skin: No significant rash Psychological: Normal affect Results Laboratory Results: 02/02/17 04:52 02/02/17 04:52 02/02/17 02/02/17 04:52 04:52 WBC 5.5 RBC 4.75 Hgb 13.8 Hct 40.8 MCV 86 MCH 29.1 MCHC 33.9 RDW 14.2 H Plt Count 226 Sodium 140.7 Potassium 4.1 Chloride 106 Carbon Dioxide 24 Anion Gap 11 BUN 10 Creatinine 1.08 Est GFR ( Amer) > 60 Est GFR (Non-Af Amer) > 60 Glucose 98 Calcium 9.8 Total Bilirubin 2.4 H AST 361 H ALT 857 H Alkaline Phosphatase 288 H Total Protein 6.9 Albumin 4.0 Impressions: Abdomen/Pelvis CT 02/01/17 12:20 IMPRESSION: Post recent cholecystectomy without fluid or inflammatory change in the gallbladder fossa No abscess or hematoma along the anterior abdominal wall laparoscopic trocar tracks. Left double-J stent in good positioning, no change in left lower pole 10 mm calculus or left mid 3rd ureter tiny stones. Stable marked distention of the left renal pelvis and calices compared to 01/26/2017 CT Assessment & Plan - Diagnosis (1) Biliary tract disorder Is this a current diagnosis for this admission?: YesPlan: His abdominal pain with jaundice and recent cholecystectomy is suggestive of choledocholithiasis. The need for an ERCP including the risks and benefits was explained to the patient and he is in agreement. (2) Abdominal pain Qualifiers: Abdominal location: generalized Qualified Code(s): R10.84 - Generalized abdominal pain Is this a current diagnosis for this admission?: Yes (3) Elevated LFTs Is this a current diagnosis for this admission?: Yes
--- NOTE | 2017-02-02 19:57 | Operative Report ---
Operative Report DATE OF SURGERY: 02/02/17 Operative Report: Pre-op diagnosis: Jaundice and gallstones Post-op diagnosis: Common bile duct stone Surgery: ERCP with sphincterotomy and balloon stone extraction Medications: Versed 6mg Fentanyl 150mcg IV push Tissue removed: None Procedure: After informed consent obtained from patient, the throat was sprayed with Hurricane and conscious sedation was achieved. The ERCP endoscope was then inserted into the esophagus blindly and advanced into the stomach. The duodenum was entered and the ampulla was identified. Using the triple-lumen sphincterotomy catheter the common bile duct was freely cannulated. A cholangiogram was obtained which showed a filling defect in the distal common bile duct. The common bile duct and intrahepatic ducts did not appear dilated. A good sized sphincterotomy was then performed using the endocut mode. The catheter was removed over the guidewire before a 9-12 mm balloon catheter was inserted. The balloon was inflated to 12 mm in the proximal common bile duct and pulled down the duct. A small stone was extracted. The duct was swept one more time. A balloon occlusion cholangiogram was normal. The pancreatic duct was intentionally not cannulated. Patient tolerated procedure well. Findings Common bile duct: Small yellow stone was extracted Intrahepatic ducts: Normal Pancreatic duct: Not cannulated Plan: Follow-up LFTs OPERATION: .
[2017-02-02] MEDS ORDERED: INDOMETHACIN 50 MG SUPP.RECT PR ONE (20:30)
[2017-02-03] MEDS: CEFAZOLIN 1 GM/D5W RTU 50 ML IV SCH ×3 (00:03→12:16)
[2017-02-03 01:35] VITALS: BP 144/91
[2017-02-03 05:26] LABS: HEMOGLOBIN 13.1 g/dL (13.5-17.0); HGB HCT DIFFERENCE 0.3; MEAN CORPUSCULAR HEMOGLOBIN 29.1 pg (27.0-33.4); MEAN CORPUSCULAR HGB CONC 33.5 g/dL (32.0-36.0); MEAN CORPUSCULAR VOLUME 87 fl (80-97); RED CELL DISTRIBUTION WIDTH 13.9 % (11.5-14.0); WHITE BLOOD COUNT 5.6 10^3/uL (4.0-10.5)
[2017-02-03 05:37] LABS: ALBUMIN 3.5 g/dL (3.5-5.0); BILIRUBIN,TOTAL 1.4 mg/dL (0.2-1.3); TOTAL PROTEIN 6.2 g/dL (6.3-8.2)
[2017-02-03] MEDS: FAMOTIDINE INJ/PF 20 MG/2 ML SDV IV SCH (09:42)
--- NOTE | 2017-02-03 12:43 | DISCHARGE SUMMARY E ---
Discharge Summary NAME: TIA BROUSSARD : 1970 AGE: 46Y ADMITTED: 02/01/2017 DISCHARGED: 02/03/2017 ADMITTING DIAGNOSES: Obstructive jaundice due to common bile duct stones. DISCHARGE DIAGNOSIS: Status post ERCP and retaining of the common bile duct stones. HOSPITAL COURSE: The patient has had cholecystitis calculus. He had gallbladder removal and laparoscopic cholecystectomy a week ago. He went home, came back with abdominal pain and noted to have some jaundice, elevated white count. After the ERCP, the patient, this morning, feeling very well, afebrile, tolerating diet well, so will discharge him home today. He will follow with the Surgery [facility] in 1 week. DICTATING PHYSICIAN: LUIS EDUARDO LOUIE M.D. [id number] PHY#: [id number] ID: [id number] JOB#: [id number] ACCT: [id number] cc:Eusebia RAMIREZ M.D. >
== END 2017-02-03 13:48 | disposition home or self-care (01) ==
LOC: ER 10:39 → UNDOADMOB 17:54 → EH 17:54 → 5 21:16 → EH 21:16 → 5 22:31 → EH 22:31
PROC: 0FC98ZZ Extirpation of Matter from Common Bile Duct, Via Natural or Artificial Opening Endoscopic (ICD-10-PCS; principal; 2017-02-01)
PROC: 0F798ZZ Dilation of Common Bile Duct, Via Natural or Artificial Opening Endoscopic (ICD-10-PCS; 2017-02-01)
DX: K80.51 Calculus of bile duct without cholangitis or cholecystitis with obstruction (principal); I10 Essential (primary) hypertension; K21.9 Gastro-esophageal reflux disease without esophagitis; F32.9 Major depressive disorder, single episode, unspecified; R10.84 Generalized abdominal pain
CPT/HCPCS: 43264; 43262; 36415 ×3; 83690; 85025; 85027 ×2; 80076; 80053 ×2; 81001; 74328; 74177; G0378 ×3; J2250; J0690 ×3; J3010; J2405; J7030 ×2; S0028 ×2; J0171; J1610; J2310; J2550; J3490

== ENCOUNTER 2017-05-08 10:59 | Emergency (ER) | payer SELFPAY ==
[2017-05-08 11:13] VITALS: BP 156/106
[2017-05-08] MEDS ORDERED: CLINDAMYCIN HCL 150 MG CAPSULE PO ONE (12:32)
--- NOTE | 2017-05-08 12:32 | ER Document Report ---
ED Oral Problem - General Chief Complaint: Toothache Stated Complaint: DIZZY Time Seen by Provider: 05/08/17 12:24 Mode of Arrival: Ambulatory Information source: Patient Notes: 47-year-old male presents to ED for dental pain that started on Monday. He had some swelling to the right lower jaw. States he called the dentist and they stated that they could not treat him with swelling to his jaw that he needed to get on antibiotics first. TRAVEL OUTSIDE OF THE [place] IN LAST 30 DAYS: No - HPI Patient complains to provider of: Swelling of jaw, Toothache Onset: Other - Monday Quality of pain: Sharp, Throbbing Severity: Moderate Pain Level: 3 Associated symptoms: Jaw pain - Minimal jaw swelling, Toothache Worsened by: Nothing Relieved by: Nothing Similar symptoms previously: Yes Recently seen / treated by doctor/dentist: No - Related Data Allergies/Adverse Reactions: No Known Allergies Allergy (Verified 05/08/17 11:06) Past Medical History - General Information source: Patient - Social History Smoking Status: Never Smoker Cigarette use (# per day): No Chew tobacco use (# tins/day): No Smoking Education Provided: No Frequency of alcohol use: None Drug Abuse: None Lives with: Family Family History: Arthritis, CAD, CVA, DM, Hyperlipidemia, Hypertension Patient has suicidal ideation: No Patient has homicidal ideation: No - Past Medical History Cardiac Medical History: Reports: Hx Hypertension Pulmonary Medical History: Reports: None EENT Medical History: Reports: None Neurological Medical History: Reports: None Endocrine Medical History: Reports: None Renal/ Medical History: Reports: Hx Kidney Stones - Had surgery Malignancy Medical History: Reports None GI Medical History: Reports: Hx Gastroesophageal Reflux Disease Musculoskeltal Medical History: Reports None Skin Medical History: Reports None Psychiatric Medical History: Reports: Hx Depression Traumatic Medical History: Reports: None Past Surgical History: Reports: Hx Appendectomy - Ruptured, Hx Cholecystectomy, Hx Kidney (Renal Surgery), Other - For kidney stone - Immunizations Hx Diphtheria, Pertussis, Tetanus Vaccination: Yes Review of Systems - Review of Systems Constitutional: No symptoms reported EENT: No symptoms reported, Dental problem, Other - jaw pain and swelling Cardiovascular: No symptoms reported Respiratory: No symptoms reported Gastrointestinal: No symptoms reported Genitourinary: No symptoms reported Male Genitourinary: No symptoms reported Musculoskeletal: No symptoms reported Skin: No symptoms reported Hematologic/Lymphatic: No symptoms reported Neurological/Psychological: No symptoms reported -: Yes All other systems reviewed and negative Physical Exam - Vital signs Vitals: Temp Pulse Resp BP Pulse Ox 97.9 F 86 20 156/106 H 97 05/08/17 11:08 05/08/17 11:08 05/08/17 11:08 05/08/17 11:08 05/08/17 11:08 Interpretation: Normal - General General appearance: Appears well, Alert - HEENT Head: Normocephalic, Atraumatic Eyes: Normal Pupils: PERRL Ears: Normal External canal: Normal Tympanic membrane: Normal Sinus: Normal Nasal: Normal Mouth/Lips: Caries Teeth diagram: 1 - tooth broke off at gum line with swelling to jaw and gums Pharynx: Other - swelling to jaw Neck: Anterior cervical chain - Respiratory Respiratory status: No respiratory distress Chest status: Nontender Breath sounds: Normal Chest palpation: Normal - Cardiovascular Rhythm: Regular Heart sounds: Normal auscultation Murmur: No - Abdominal Inspection: Normal Distension: No distension Bowel sounds: Normal Tenderness: Nontender Organomegaly: No organomegaly - Back Back: Normal, Nontender - Extremities General upper extremity: Normal inspection, Nontender, Normal color, Normal ROM , Normal temperature General lower extremity: Normal inspection, Nontender, Normal color, Normal ROM , Normal temperature, Normal weight bearing. No: Austen's sign - Neurological Neuro grossly intact: Yes Cognition: Normal Orientation: AAOx4 Henderson Coma Scale Eye Opening: Spontaneous Henderson Coma Scale Verbal: Oriented Henderson Coma Scale Motor: Obeys Commands Henderson Coma Scale Total: 15 Speech: Normal Motor strength normal: LUE, RUE, LLE, RLE Sensory: Normal - Psychological Associated symptoms: Normal affect, Normal mood - Skin Skin Temperature: Warm Skin Moisture: Dry Skin Color: Normal Course - Vital Signs Vital signs: Temp Pulse Resp BP Pulse Ox 97.9 F 86 20 156/106 H 97 05/08/17 11:08 05/08/17 11:08 05/08/17 11:08 05/08/17 11:08 05/08/17 11:08 Discharge - Discharge Clinical Impression: Pain due to dental caries Condition: Stable Disposition: HOME, SELF-CARE Additional Instructions: TOOTHACHE: Your pain is due to dental decay. The tooth must be repaired in order for you to feel better. You will, therefore, be referred to a dentist. We do not have dentists on the staff at [facility]. Severe swelling or drainage around a tooth usually means a dental abscess. This also requires evaluation and treatment by the dentist, but antibiotics may be prescribed while awaiting dental treatment. You should be rechecked immediately if you develop major swelling of the face, increasing pain, a lump in the jaw or gums, headache, difficulty swallowing, or fever. ORAL NARCOTIC MEDICATION: You have been given a prescription for pain control. This medication is a narcotic. It's best taken with food, as nausea can result if taken on an empty stomach. Don't operate machinery or drive within six hours of taking this medication. Do not combine this medicine with alcohol, or with any medication which can cause sedation (such as cold tablets or sleeping pills) unless you get permission from the physician. Narcotics tend to cause constipation. If possible, drink plenty of fluids and eat a diet high in fiber and fruits. Please be aware that prescription narcotics also have the potential for abuse. People become addicted to these medications because of the general sense of wellbeing that they induce. This feeling along with a significant reduction in tension, anxiety, and aggression provides a stimulating seductive quality to these drugs. Once your pain is under control, we encourage you to discard your unused narcotics. CLINDAMYCIN: You have been given a prescription for the antibiotic clindamycin. It is often prescribed for infections in the mouth, such as dental infections or abscesses, and for skin infections due to MRSA. It's important that you take all the medication, unless instructed otherwise by your physician. Failure to complete the entire course can result in relapse of your condition. Common side effects of antibiotics include nausea, intestinal cramping, or diarrhea. Women may develop vaginal yeast infections, and babies can get yeast (thrush) in the mouth following the use of antibiotics. Contact your physician if you develop significant side effects from this medication. Allergy to this antibiotic can result in hives, wheezing, faintness, or itching. If symptoms of allergy occur, stop the medication and call the doctor. FOLLOW-UP CARE: You have been referred for follow-up care to the dentists listed below. Call the dentists office for an appointment as you were instructed or within the next two days. If you experience worsening or a significant change in your symptoms, notify the physician immediately or return to the Emergency Department at any time for re-evaluation. [facility] [address] [place], [place] To[place]ito mornings, by appointment [facility] [address] [place] [address] [facility] [address] [facility] [address] [facility] [address] [facility] [address] [email or web address] [address] [place] [address] Monday- 8:00am to 5:00 pm Will see patients from other [facility]. Charges based on income and family size and accepts Medicare, Medicaid, and Insurances Will pull molars [facility] [address] Hours of Operation 8:00 am - 4:30 pm weekdays The following dental offices accept Medicaid: [facility] Dr. [address] Dr. Hilliard Dr. Dennis Dr. Mcgill Eleazar Connolly L[place], and Rhianna oral surgery Dr. Rivera ([place]) Dr. Lanier ([place] N[place]) [facility] Drs. Cooper and Price (Veteran) Dr. Dickens ([place]eteran) [facility] Dr. Haines ([place]) Drs. Clarke and ([place]) Medicaid Care Line Prescriptions: Hydrocodone/Acetaminophen [[place] 5-325 mg Tablet] 1 tab PO Q6HP PRN #20 tablet PRN Reason: Clindamycin HCl 300 mg PO Q6 #40 capsule Forms: Elevated Blood Pressure, Return to Work
== END 2017-05-08 13:28 | disposition home or self-care (01) ==
LOC: ER 10:59
DX: K02.9 Dental caries, unspecified (principal); K08.89 Other specified disorders of teeth and supporting structures; R22.0 Localized swelling, mass and lump, head; I10 Essential (primary) hypertension
CPT/HCPCS: 99282

== ENCOUNTER 2017-08-07 21:21 | Emergency (ER) | payer OTHER ==
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
[2017-08-08 02:34] VITALS: BP 144/116
== END 2017-08-08 02:32 | disposition home or self-care (01) ==
LOC: ER 21:21
DX: S16.1XXA Strain of muscle, fascia and tendon at neck level, initial encounter (principal); S29.012A Strain of muscle and tendon of back wall of thorax, initial encounter; R03.0 Elevated blood-pressure reading, without diagnosis of hypertension; M54.2 Cervicalgia; V87.7XXA Person injured in collision between other specified motor vehicles (traffic), initial encounter
CPT/HCPCS: 72070; 72125; 99284

== ENCOUNTER 2019-06-06 00:31 | Emergency (ER) | payer SELFPAY ==
[2019-06-06] MEDS ORDERED: NORMAL SALINE 1000 ML 1,000 ML IV ONE ×2 (01:00→05:48)
[2019-06-06] MEDS ORDERED: HYDROMORPHONE HCL INJ/PF 2 MG/ML AMPULE IV ONE ×2 (01:00→02:49)
[2019-06-06] MEDS ORDERED: ONDANSETRON HCL INJ/PF 4 MG/2 ML SDV IV ONE (01:02)
--- NOTE | 2019-06-06 01:03 | ER Document Report ---
ED GI/ - General Chief Complaint: Abdominal Pain Stated Complaint: ABDOMINAL PAIN Time Seen by Provider: 06/06/19 00:54 Notes: Patient is a 49-year-old male that comes to the emergency department with chief complaint of sharp mid abdominal pain that began at 6 PM, worsen, worsen to the point that he began vomiting, prompting him to come to the emergency department. He denies flank pain, he points to the general mid abdomen for the location of pain. He has had a cholecystectomy, appendectomy, and has a history of kidney stones. He states his only other medical history is hypertension. He denies smoking, alcohol, recreational drugs. He had a normal bowel movement earlier today reportedly. TRAVEL OUTSIDE OF THE [place] IN LAST 30 DAYS: No - Related Data Allergies/Adverse Reactions: No Known Allergies Allergy (Verified 06/06/19 00:33) Past Medical History - General Information source: Patient - Social History Smoking Status: Former Smoker Drug Abuse: None Lives with: Family Family History: Arthritis, CAD, CVA, DM, Hyperlipidemia, Hypertension - Past Medical History Cardiac Medical History: Reports: Hx Hypertension Neurological Medical History: Reports: Hx Seizures - As a child Renal/ Medical History: Reports: Hx Kidney Stones - Had surgery. Denies: Hx Peritoneal Dialysis GI Medical History: Reports: Hx Gastroesophageal Reflux Disease Psychiatric Medical History: Reports: Hx Depression Past Surgical History: Reports: Hx Appendectomy - Ruptured, Hx Cholecystectomy, Hx Herniorrhaphy, Hx Kidney (Renal Surgery), Other - For kidney stone - Immunizations Hx Diphtheria, Pertussis, Tetanus Vaccination: Yes Review of Systems - Review of Systems Constitutional: No symptoms reported EENT: No symptoms reported Cardiovascular: No symptoms reported Respiratory: No symptoms reported Gastrointestinal: See HPI Genitourinary: No symptoms reported Male Genitourinary: No symptoms reported Musculoskeletal: No symptoms reported Skin: No symptoms reported Hematologic/Lymphatic: No symptoms reported Neurological/Psychological: No symptoms reported Physical Exam - Vital signs Vitals: Temp Pulse Resp BP Pulse Ox 97.4 F 100 19 148/96 H 97 06/06/19 00:33 06/06/19 00:33 06/06/19 00:33 06/06/19 00:33 06/06/19 00:33 - Notes Notes: GENERAL: Patient appears mildly uncomfortable but not in severe distress HEAD: Normocephalic, atraumatic. EYES: Pupils equal, round, and reactive to light. Extraocular movements intact. ENT: Oral mucosa moist, tongue midline. Oropharynx unremarkable. Airway patent. LUNGS: Clear to auscultation bilaterally, no wheezes, rales, or rhonchi. No respiratory distress. HEART: Regular rate and rhythm. No murmur ABDOMEN: There is mild generalized tenderness over the mid to lower abdomen, nonspecific, no guarding. Multiple surgical scars which are old. GENITOURINARY: No swelling, redness, or concerning findings noted. EXTREMITIES: Moves all 4 extremities spontaneously. No edema, normal radial and dorsalis pedis pulses bilaterally. No cyanosis. BACK: no cervical, thoracic, lumbar midline tenderness. No saddle anesthesia, normal distal neurovascular exam. Moves all extremities in full range of motion. NEUROLOGICAL: Alert and oriented x3. Normal speech. Cranial nerves II through XII grossly intact. PSYCH: Normal affect, normal mood. SKIN: Warm, dry, normal turgor. No rashes or lesions noted. Course - Re-evaluation Re-evalutation: CBC shows mild leukocytosis, chemistry unremarkable, lipase unremarkable. Patient has not provided a urine yet. Because of his generalized abdominal pain, vomiting, and the severity of the reported pain as well as some discomfort noted CAT scan of the abdomen and pelvis with IV and oral contrast was performed. Urine shows hematuria and some white blood cells. No nitrites or bacteria note d. Culture placed. Patient still states that this does not feel like a kidney stone. He was remedicated while drinking contrast. CAT scan surprisingly shows a left-sided ureteral stent, also shows a 4 mm passing stone in the mid ureter, shows hydronephrosis. I asked patient, he admits that he has not had the stent removed, [place] about [place] He never followed up. Will discuss with urology. I discussed with Dr. Ramirez, urologist at [facility], he states he recommends urine culture, antibiotics orally, pain medication, and follow-up in the office by calling today. He states I should tell the patient that if he does not follow-up he could end up ultimately losing his kidney, this stent needs to be addressed. I did tell patient this, he got severe anxiety about this at first, and then calmed down, he states he will take the pain medication, antibiotics, and call the office today. at bedside states agreement. Discussed return precautions in detail. They state understanding and agreement with plan. - Vital Signs Vital signs: Temp Pulse Resp BP Pulse Ox 97.4 F 100 19 133/92 H 95 06/06/19 00:33 06/06/19 00:33 06/06/19 00:33 06/06/19 03:50 06/06/19 03:51 - Laboratory Result Diagrams: 06/06/19 01:34 06/06/19 01:34 Laboratory results interpreted by me: 06/06/19 06/06/19 06/06/19 01:34 01:34 02:15 WBC 11.7 H Seg Neutrophils % 86.4 H Lymphocytes % 8.2 L Absolute Neutrophils 10.1 H Creatinine 1.27 H Glucose 118 H Urine Protein 100 H Urine Ketones TRACE H Urine Blood LARGE H Ur Leukocyte Esterase MODERATE H Discharge - Discharge Clinical Impression: Ureterolithiasis Abdominal pain Qualifiers: Abdominal location: generalized Qualified Code(s): R10.84 - Generalized abdominal pain Condition: Stable Disposition: HOME, SELF-CARE Additional Instructions: I spoke with Dr. Ramirez, urologist at [facility], please call the office listed below to be seen in close follow-up so this stone and stent can be managed. You must follow-up, you risk serious damage to your kidney if this stent remains in place. Take the antibiotics as prescribed, take the pain medication if needed, take the nausea medication if needed. Return immediately if you worsen in any way including fever/chills, uncontrolled vomiting, worsening pain, or any other concerning symptoms. [facility] [address] [place], [place] [id number] [facility] [address] [place] [id number] Prescriptions: Cephalexin Monohydrate [Keflex 500 mg Capsule] 500 mg PO BID 7 Days #14 capsule Oxycodone HCl/Acetaminophen [Percocet 5-325 mg Tablet] 1 - 2 tab PO TID PRN #15 tablet PRN Reason: Promethazine HCl [Phenergan 25 mg Tablet] 25 mg PO Q6H PRN #20 tablet PRN Reason:
[2019-06-06 01:43] LABS: ABSOLUTE EOSINOPHILS # (AUTO) 0.1 10^3/uL (0.0-0.6); ABSOLUTE MONOCYTES (AUTO) 0.5 10^3/uL (0.1-1.4); ABSOLUTE NEUT (AUTO) 10.1 10^3/uL (1.7-8.2); BASOPHILS % (AUTO) 0.3 % (0-2); EOSINOPHILS % (AUTO) 0.5 % (0-6); HEMATOCRIT 42.4 % (37.9-51.0); HEMOGLOBIN 14.1 g/dL (13.5-17.0); LYMPHOCYTES % (AUTO) 8.2 % (13-45); MEAN CORPUSCULAR HEMOGLOBIN 28.7 pg (27.0-33.4); MEAN CORPUSCULAR HGB CONC 33.3 g/dL (32.0-36.0); MEAN CORPUSCULAR VOLUME 86 fl (80-97); MONOCYTES % (AUTO) 4.6 % (3-13); PLATELET COUNT 258 10^3/uL (150-450); RED BLOOD COUNT 4.92 10^6/uL (4.35-5.55); RED CELL DISTRIBUTION WIDTH 13.5 % (11.5-14.0); SEGMENTED NEUTROPHILS % (AUTO) 86.4 % (42-78); TOTAL CELLS COUNTED % (AUTO) 100 %; WHITE BLOOD COUNT 11.7 10^3/uL (4.0-10.5)
[2019-06-06 02:05] LABS: ALANINE AMINOTRANSFERASE 33 U/L (21-72); ALBUMIN 4.5 g/dL (3.5-5.0); ALKALINE PHOSPHATASE 92 U/L (38-126); ANION GAP 10 (5-19); ASPARTATE AMINO TRANSFERASE 24 U/L (17-59); BILIRUBIN,DIRECT 0.3 mg/dL (0.0-0.4); BILIRUBIN,TOTAL 0.8 mg/dL (0.2-1.3); BLOOD UREA NITROGEN 16 mg/dL (7-20); CALCIUM 9.7 mg/dL (8.4-10.2); CARBON DIOXIDE 25 mmol/L (22-30); CHLORIDE 104 mmol/L (98-107); GLUCOSE 118 mg/dL (75-110); LIPASE 165.5 U/L (23-300); POTASSIUM 4.2 mmol/L (3.6-5.0); SODIUM 139.2 mmol/L (137-145); TOTAL PROTEIN 7.7 g/dL (6.3-8.2)
[2019-06-06 02:27] LABS: APPEARANCE,URINE SLIGHTLY-CLOUDY; BILIRUBIN,URINE NEGATIVE (NEGATIVE); COLOR,URINE YELLOW; GLUCOSE, URINE NEGATIVE (NEGATIVE); KETONES,URINE TRACE mg/dL (NEGATIVE); LEUKOCYTE ESTERASE,URINE MODERATE (NEGATIVE); NITRITE,URINE NEGATIVE (NEGATIVE); PROTEIN,URINE 100 mg/dL (NEGATIVE); URINE SPECIFIC GRAVITY 1.016; UROBILINOGEN,URINE NEGATIVE mg/dL (<2.0)
[2019-06-06] MEDS ORDERED: METOCLOPRAMIDE HCL INJ/PF 10 MG/2 ML SDV IV ONE ×2 (03:25→05:48)
[2019-06-06 03:55] VITALS: BP 133/92
--- NOTE | 2019-06-06 05:04 | RADIOLOGY REPORT (SQ) ---
CLINICAL HISTORY: sharp mid abd pain, vomiting COMPARISON: None. TECHNIQUE: CT ABDOMEN PELVIS WITH IV CONTRAST on 06/06/2019 12:00 AM CDT This exam was performed according to our departmental dose-optimization program, which includes automated exposure control, adjustment of the mA and/or kV according to patient size and/or use of iterative reconstruction technique. FINDINGS: Lower lungs are clear. Abdomen: The liver is normal in appearance. There is no biliary dilatation. Cholecystectomy was performed. Stomach is mildly distended. The pancreas and spleen are normal in appearance. The adrenal glands and right kidney are unremarkable. There is moderate left hydronephrosis despite presence of the left ureteral stent. There is a mid left ureteral calculus measuring 4 mm. Abdominal aorta is normal in course and caliber without aneurysm. There is no free air. There is no retroperitoneal adenopathy. Pelvis: There is no bowel obstruction. Urinary bladder is unremarkable. There is no free fluid. There are small bilateral fat-containing inguinal hernias. Appendectomy was performed. Skeleton: There are no acute osseous findings. No suspicious bony lesions. IMPRESSION: Left hydronephrosis with left ureteral stent in place. Left ureteral calculus noted.
[2019-06-06] MEDS ORDERED: KETOROLAC TROMETHAMINE INJ/PF 30 MG/1 ML SDV IV ONE (05:46)
[2019-06-06] MEDS ORDERED: HYDROCODONE/ACETAMINOPHEN 5-325 MG (6 TAB/ER DISP) PO PRN (05:47)
[2019-06-06] MEDS ORDERED: ONDANSETRON ODT 4 MG TAB (6 TAB/ER DISP) PO PRN (05:47)
== END 2019-06-06 07:15 | disposition home or self-care (01) ==
LOC: ER 00:31
DX: R10.9 Unspecified abdominal pain (principal); R11.10 Vomiting, unspecified
CPT/HCPCS: 96376; 99284; 96361; 96374; 96375; 36415; 87086; 83605; 83690; 85025; 80053; 81001; 74177; J1885; J2765; J1170; J2405; J7030

== ENCOUNTER 2019-08-21 23:05 | Observation (INO) | payer SELFPAY ==
[2019-08-22 01:03] LABS: ABSOLUTE EOSINOPHILS # (AUTO) 0.2 10^3/uL (0.0-0.6); ABSOLUTE LYMPHOCYTES (AUTO) 1.8 10^3/uL (0.5-4.7); ABSOLUTE MONOCYTES (AUTO) 0.9 10^3/uL (0.1-1.4); ABSOLUTE NEUT (AUTO) 5.6 10^3/uL (1.7-8.2); BASOPHILS % (AUTO) 0.4 % (0-2); EOSINOPHILS % (AUTO) 1.8 % (0-6); HEMATOCRIT 42.8 % (37.9-51.0); HEMOGLOBIN 14.6 g/dL (13.5-17.0); LYMPHOCYTES % (AUTO) 20.9 % (13-45); MEAN CORPUSCULAR HEMOGLOBIN 29.4 pg (27.0-33.4); MEAN CORPUSCULAR HGB CONC 34.1 g/dL (32.0-36.0); MEAN CORPUSCULAR VOLUME 86 fl (80-97); MONOCYTES % (AUTO) 10.4 % (3-13); PLATELET COUNT 280 10^3/uL (150-450); RED BLOOD COUNT 4.95 10^6/uL (4.35-5.55); RED CELL DISTRIBUTION WIDTH 13.6 % (11.5-14.0); SEGMENTED NEUTROPHILS % (AUTO) 66.5 % (42-78); TOTAL CELLS COUNTED % (AUTO) 100 %; WHITE BLOOD COUNT 8.5 10^3/uL (4.0-10.5)
[2019-08-22 01:04] LABS: APPEARANCE,URINE CLEAR; BILIRUBIN,URINE NEGATIVE (NEGATIVE); COLOR,URINE YELLOW; GLUCOSE, URINE NEGATIVE (NEGATIVE); KETONES,URINE NEGATIVE (NEGATIVE); LEUKOCYTE ESTERASE,URINE MODERATE (NEGATIVE); NITRITE,URINE NEGATIVE (NEGATIVE); PROTEIN,URINE 100 mg/dL (NEGATIVE); URINE SPECIFIC GRAVITY 1.014; UROBILINOGEN,URINE NEGATIVE mg/dL (<2.0)
[2019-08-22 01:21] LABS: ALBUMIN 4.6 g/dL (3.5-5.0); ALKALINE PHOSPHATASE 97 U/L (38-126); ANION GAP 12 (5-19); ASPARTATE AMINO TRANSFERASE 33 U/L (17-59); BILIRUBIN,DIRECT 0.2 mg/dL (0.0-0.4); BILIRUBIN,TOTAL 0.9 mg/dL (0.2-1.3); BLOOD UREA NITROGEN 13 mg/dL (7-20); CALCIUM 9.8 mg/dL (8.4-10.2); CARBON DIOXIDE 28 mmol/L (22-30); CHLORIDE 100 mmol/L (98-107); GLUCOSE 103 mg/dL (75-110); POTASSIUM 4.1 mmol/L (3.6-5.0); TOTAL PROTEIN 7.9 g/dL (6.3-8.2)
[2019-08-22] MEDS ORDERED: NORMAL SALINE 1000 ML 1,000 ML IV ONE ×2 (04:26→06:39)
[2019-08-22] MEDS ORDERED: ONDANSETRON HCL INJ/PF 4 MG/2 ML SDV IV ONE (04:26)
[2019-08-22] MEDS ORDERED: HYDROMORPHONE HCL INJ/PF 2 MG/ML AMPULE IV ONE (04:26)
--- NOTE | 2019-08-22 04:28 | ER Document Report ---
ED GI/ - General Chief Complaint: Abdominal Swelling Stated Complaint: TROUBLE BREATHING Time Seen by Provider: 08/22/19 04:22 Notes: Patient is a 49-year-old male that comes emergency department for chief complaint of abdominal pain. Patient has a known ventral hernia, he states he has not been able to push it back in for about a week, however over the past day or so it has become much more tender, hard, and red. He denies vomiting or f ever. He has been able to have a bowel movement. Has not eaten anything since last night. He states he has a history of ruptured appendicitis and cholecystectomy. He denies smoking, alcohol, recreational drugs. Past medical history of hypertension. TRAVEL OUTSIDE OF THE [place] IN LAST 30 DAYS: No - Related Data Allergies/Adverse Reactions: No Known Allergies Allergy (Verified 06/06/19 00:33) Past Medical History - General Information source: Patient - Social History Smoking Status: Never Smoker Frequency of alcohol use: None Drug Abuse: None Lives with: Family Family History: Arthritis, CAD, CVA, DM, Hyperlipidemia, Hypertension Patient has suicidal ideation: No Patient has homicidal ideation: No - Past Medical History Cardiac Medical History: Reports: Hx Hypertension Neurological Medical History: Reports: Hx Seizures - As a child Renal/ Medical History: Reports: Hx Kidney Stones - Had surgery. Denies: Hx Peritoneal Dialysis GI Medical History: Reports: Hx Gastroesophageal Reflux Disease Psychiatric Medical History: Reports: Hx Depression Past Surgical History: Reports: Hx Appendectomy - Ruptured, Hx Cholecystectomy, Hx Herniorrhaphy, Hx Kidney (Renal Surgery), Other - For kidney stone - Immunizations Hx Diphtheria, Pertussis, Tetanus Vaccination: Yes Review of Systems - Review of Systems Constitutional: No symptoms reported EENT: No symptoms reported Cardiovascular: No symptoms reported Respiratory: No symptoms reported Gastrointestinal: See HPI Genitourinary: No symptoms reported Male Genitourinary: No symptoms reported Musculoskeletal: No symptoms reported Skin: No symptoms reported Hematologic/Lymphatic: No symptoms reported Neurological/Psychological: No symptoms reported Physical Exam - Vital signs Vitals: Temp Pulse Resp BP Pulse Ox 98.0 F 101 H 20 143/93 H 100 08/21/19 23:29 08/21/19 23:29 08/21/19 23:29 08/21/19 23:29 08/21/19 23:29 - Notes Notes: GENERAL: Patient appears uncomfortable but is not in severe distress HEAD: Normocephalic, atraumatic EYES: Pupils equal, round, and reactive to light. Extraocular movements intact. ENT: Oral mucosa moist, tongue midline. Oropharynx unremarkable. Airway patent. LUNGS: Clear to auscultation bilaterally, no wheezes, rales, or rhonchi. No respiratory distress. HEART: Regular rate and rhythm. No murmur ABDOMEN: Mid abdomen is firm, very tender, erythematous. This appears to be supraumbilical hernia. Concern for incarceration. Remaining abdomen with mild diffuse tenderness. No bowel sounds noted over the area GENITOURINARY: Deferred EXTREMITIES: Moves all 4 extremities spontaneously. No edema, normal radial and dorsalis pedis pulses bilaterally. No cyanosis. BACK: no cervical, thoracic, lumbar midline tenderness. No saddle anesthesia, normal distal neurovascular exam. Moves all extremities in full range of motion. NEUROLOGICAL: Alert and oriented x3. Normal speech. Cranial nerves II through XII grossly intact. SKIN: Warm, dry, normal turgor. No rashes or lesions noted. Course - Re-evaluation Re-evalutation: 08/22/19 04:30 Patient's abdominal exam is very concerning. Ventral hernia is very tender, hard, and there is erythema over the area. Patient is obviously uncomfortable. He does not have leukocytosis. Adding lactic acid, keeping n.p.o., he has not eaten anything for over 8 hours. He is not vomiting. I did call and speak with Dr. Mora, general surgeon, he recommends a noncontrast CT to evaluate if bowel is in the hernia. 08/22/19 05:48 CAT scan showing fat-containing hernia in the supraumbilical area with some mild surrounding inflammation but there is no bowel in the hernia. There is hydronephrosis with the right ureteral stent but this is not new, patient states he has seen urology and they told him he could have this removed electively, this was in [facility]. I spoke with Dr. Mora, patient will be admitted to the surgical service. - Vital Signs Vital signs: Temp Pulse Resp BP Pulse Ox 98 F 99 24 H 130/98 H 94 08/22/19 04:18 08/22/19 04:18 08/22/19 06:01 08/22/19 06:01 08/22/19 06:01 - Laboratory Result Diagrams: 08/22/19 00:43 08/22/19 00:43 Laboratory results interpreted by me: 08/22/19 08/22/19 00:43 00:43 Creatinine 1.36 H Est GFR (MDRD) Non-Af 55 L Urine Protein 100 H Urine Blood MODERATE H Ur Leukocyte Esterase MODERATE H Discharge - Discharge Clinical Impression: Umbilical hernia Qualifiers: Obstruction and gangrene presence: without obstruction or gangrene Qualified Code(s): K42.9 - Umbilical hernia without obstruction or gangrene Abdominal pain Qualifiers: Abdominal location: periumbilical Qualified Code(s): R10.33 - Periumbilical pain Condition: Stable Disposition: ADMITTED OBSERVATION Admitting Provider: Surgicalist Unit Admitted: Surgical Floor
--- NOTE | 2019-08-22 05:31 | RADIOLOGY REPORT (SQ) ---
CLINICAL HISTORY: mid abd pain; bowel in hernia? COMPARISON: June 06, 2019. TECHNIQUE: CT ABDOMEN PELVIS WITHOUT IV CONTRAST on 08/22/2019 4:30 AM CDT This exam was performed according to our departmental dose-optimization program, which includes automated exposure control, adjustment of the mA and/or kV according to patient size and/or use of iterative reconstruction technique. FINDINGS: Lower lungs are clear. Abdomen: Liver is fatty in attenuation. There is no biliary dilatation. Cholecystectomy was performed. The pancreas and spleen are normal in appearance. Adrenal glands are normal. Kidneys are mildly atrophic. There is an 8 mm lower pole left renal calculus. There is left hydronephrosis with a left ureteral stent in place. There is a 4 mm calculus in the mid left ureter. There is a 3 mm calculus in the lower third of the left ureter. The lower pigtail portion of the ureteral stent is calcified. Abdominal aorta is normal in course and caliber without aneurysm. There is no free air. There is no retroperitoneal adenopathy.There is a moderate fat-containing supraumbilical umbilical anterior abdominal wall hernia. There is mild associated inflammation. Pelvis: There is no bowel within the hernia. Urinary bladder is unremarkable. There is no free fluid. There are small fat-containing inguinal hernias. Appendectomy was performed. Skeleton: There are no acute osseous findings. No suspicious bony lesions. IMPRESSION: Fat-containing supraumbilical abdominal wall hernia containing no bowel. Mild associated inflammation. Persistent left hydronephrosis with a ureteral stent in place.
[2019-08-22] MEDS ORDERED: NORMAL SALINE 1000 ML 1,000 ML IV PRN ×2 (06:08→10:18)
[2019-08-22] MEDS ORDERED: METOCLOPRAMIDE HCL INJ/PF 10 MG/2 ML SDV IV ONE (06:20)
[2019-08-22] MEDS ORDERED: GLUCAGON,HUMAN RECOMB 1 MG INJ SUBCUT PRN (06:28)
[2019-08-22] MEDS ORDERED: DEXTROSE 5%-LACTATED RINGERS 1,000 ML IV PRN (06:28)
[2019-08-22] MEDS ORDERED: DEXTROSE 50%-WATER 25 GM/50 ML DISP.SYRIN IV PRN ×2 (06:28)
[2019-08-22] MEDS ORDERED: DEXTROSE 40% GEL 15 GM TUBE PO PRN ×2 (06:28)
--- NOTE | 2019-08-22 06:38 | PDOC H&P ---
History of Present Illness Admission Date/PCP: 08/22/19 06:18 Patient complains of: Abdominal pain, incarcerated ventral/incisional hernia History of Present Illness: TIA BROUSSARD III is a 49 year old male with a long history of a ventral incisional hernia. For the past 2 years it has been reducible. It does cause him pain on occasion, however it is more of a nuisance than anything else. Last night, his hernia became incarcerated and began causing severe amounts of pain. Patient reports nausea associated with the pain. He has not been able to eat. The pain is sharp and stabbing. He rates it is 8 out of 10. It does not radiate. Narcotics make it better, palpation makes it worse. Currently the patient denies chest pain, shortness of breath, fevers, chills, melena, hematochezia, hematemesis, blurry vision, dizziness, orthostasis, fatigue, ma laise, paresthesias, weakness. Past Medical History Cardiac Medical History: Reports: Hypertension Neurological Medical History: Reports: Seizures - As a child GI Medical History: Reports: Gastroesophageal Reflux Disease Psychiatric Medical History: Reports: Depression Past Surgical History Past Surgical History: Reports: Appendectomy - Ruptured, Cholecystectomy, Herniorrhaphy, Other - For kidney stone Social History Smoking Status: Never Smoker Frequency of Alcohol Use: None Hx Recreational Drug Use: No Drugs: None Hx Prescription Drug Abuse: No Family History Family History: Arthritis, CAD, CVA, DM, Hyperlipidemia, Hypertension Parental Family History Reviewed: Yes Children Family History Reviewed: Yes Sibling(s) Family History Reviewed.: Yes Medication/Allergy Home Medications: Acetaminophen [Tylenol Extra Strength 500 mg Tablet] 1,000 mg PO Q6HP PRN 08/22/19 Diphenhydramine HCl [Benadryl 50 mg Capsule] 50 mg PO QHS 08/22/19 Ibuprofen [Motrin 800 mg Tablet] 800 mg PO Q8H PRN 08/22/19 Allergies/Adverse Reactions: No Known Allergies Allergy (Verified 06/06/19 00:33) Review of Systems Constitutional: PRESENT: anorexia. ABSENT: chills, fatigue, fever(s), weakness Eyes: ABSENT: visual disturbances Ears: ABSENT: hearing changes Nose, Mouth, and Throat: ABSENT: sore throat Cardiovascular: ABSENT: chest pain Respiratory: ABSENT: cough, dyspnea Gastrointestinal: PRESENT: abdominal pain, nausea, vomiting. ABSENT: hematemesis, hematochezia, melena Genitourinary: PRESENT: dysuria Musculoskeletal: ABSENT: back pain Integumentary: ABSENT: pruritus, rash Neurological: ABSENT: confusion, convulsions, dizziness, weakness Psychiatric: ABSENT: anxiety, depression Endocrine: ABSENT: cold intolerance, heat intolerance Hematologic/Lymphatic: ABSENT: easy bleeding, easy bruising Physical Exam Vital Signs: Temp Pulse Resp BP Pulse Ox 98 F 99 24 H 130/98 H 94 08/22/19 04:18 08/22/19 04:18 08/22/19 06:01 08/22/19 06:01 08/22/19 06:01 Intake & Output 08/20/19 08/21/19 08/22/19 06:59 06:59 06:59 Weight 101.6 kg General appearance: PRESENT: cooperative Head exam: PRESENT: atraumatic, normocephalic Eye exam: PRESENT: EOMI, PERRLA. ABSENT: scleral icterus Mouth exam: PRESENT: moist, neck supple Neck exam: ABSENT: tenderness, thyromegaly, tracheal deviation Respiratory exam: PRESENT: clear to auscultation grayson, symmetrical, unlabored. ABSENT: chest wall tenderness, tachypnea, wheezes Cardiovascular exam: PRESENT: RRR Pulses: PRESENT: normal radial pulses Vascular exam: PRESENT: normal capillary refill. ABSENT: pallor GI/Abdominal exam: PRESENT: soft, tenderness - At periumbilical incisional hernia, other - Periumbilical incisional hernia easily identified. The defect appears to be 3 to 4 cm in size.. ABSENT: distended, rigid Rectal exam: PRESENT: deferred Extremities exam: ABSENT: clubbing Musculoskeletal exam: ABSENT: deformity Neurological exam: PRESENT: alert, awake, oriented to person, oriented to place, oriented to time, oriented to situation, CN II-XII grossly intact Psychiatric exam: ABSENT: agitated, anxious, depressed Focused psych exam: ABSENT: delusional Skin exam: ABSENT: cyanosis, erythema, jaundice Results Laboratory Results: 08/22/19 00:43 08/22/19 00:43 08/22/19 08/22/19 08/22/19 00:43 00:43 00:43 WBC 8.5 RBC 4.95 Hgb 14.6 Hct 42.8 MCV 86 MCH 29.4 MCHC 34.1 RDW 13.6 Plt Count 280 Seg Neutrophils % 66.5 Sodium 139.5 Potassium 4.1 Chloride 100 Carbon Dioxide 28 Anion Gap 12 BUN 13 Creatinine 1.36 H Est GFR ( Amer) > 60 Glucose 103 Lactic Acid Calcium 9.8 Total Bilirubin 0.9 AST 33 Alkaline Phosphatase 97 Total Protein 7.9 Albumin 4.6 Lipase 135.6 Urine Color YELLOW Urine Appearance CLEAR Urine pH 6.0 Ur Specific [place] 1.014 Urine Protein 100 H Urine Glucose (UA) NEGATIVE Urine Ketones NEGATIVE Urine Blood MODERATE H Urine Nitrite NEGATIVE Ur Leukocyte Esterase MODERATE H Urine WBC (Auto) 12 Urine RBC (Auto) 7 08/22/19 04:48 WBC RBC Hgb Hct MCV MCH MCHC RDW Plt Count Seg Neutrophils % Sodium Potassium Chloride Carbon Dioxide Anion Gap BUN Creatinine Est GFR ( Amer) Glucose Lactic Acid 1.0 Calcium Total Bilirubin AST Alkaline Phosphatase Total Protein Albumin Lipase Urine Color Urine Appearance Urine pH Ur Specific [place] Urine Protein Urine Glucose (UA) Urine Ketones Urine Blood Urine Nitrite Ur Leukocyte Esterase Urine WBC (Auto) Urine RBC (Auto) Impressions: Abdomen/Pelvis CT 08/22/19 04:30 IMPRESSION: Fat-containing supraumbilical abdominal wall hernia containing no bowel. Mild associated inflammation. Persistent left hydronephrosis with a ureteral stent in place. Assessment & Plan - Diagnosis (1) Incarcerated incisional hernia Is this a current diagnosis for this admission?: Yes - Plan Summary Plan Summary: This is a 49-year-old male with an incarcerated incisional hernia that is causing him severe amounts of pain. He has a CT scan which I have reviewed (images and reports). He has a large amount of fat (pre-peritoneal and intra- abdominal) protruding through the hernia. He does not appear to have bowel wall associated with hernia. There is no evidence of bowel wall compromise or obstruction. His white blood cell count and lactic acid are normal. I will admit the patient the hospital, provide him with IV pain control, and plan for repair of his hernia as soon as is feasible. The patient is in agreement with the treatment plan. Risks/benefits discussed, informed consent obtained, and all questions answered.
[2019-08-22] MEDS: MORPHINE SULFATE 10 MG/ML INJ IV PRN (06:44)
[2019-08-22] MEDS ORDERED: MIDAZOLAM 2 MG/2 ML INJ ONE (08:01)
[2019-08-22] MEDS ORDERED: PROPOFOL INJ 200 MG/20 ML VIAL IV ONE (08:01)
[2019-08-22] MEDS ORDERED: FENTANYL CITRATE INJ/PF 250 MCG/5 ML AMPULE ONE (08:01)
[2019-08-22] MEDS ORDERED: BUPIVACAINE HCL 0.5%-EPI 1:200000 INJ/PF 30 ML VIAL ONE (08:07)
[2019-08-22] MEDS ORDERED: CEFAZOLIN INJ 1 GM VIAL ONE (08:11)
[2019-08-22] MEDS ORDERED: PROMETHAZINE HCL INJ 25 MG/1 ML VIAL IV PRN (08:49)
[2019-08-22] MEDS ORDERED: MEPERIDINE HCL/PF INJ 25 MG/1 ML DISP.SYRIN IV PRN (08:49)
[2019-08-22] MEDS ORDERED: MORPHINE SULFATE 10 MG/ML INJ IV PRN ×2 (08:49→10:16)
[2019-08-22] MEDS ORDERED: FENTANYL CITRATE INJ/PF 100 MCG/2 ML AMPUL IV PRN ×2 (08:49)
[2019-08-22] MEDS ORDERED: OXYCODONE-ACETAMINOPHEN 5-325 MG TABLET PO PRN ×3 (08:49→10:17)
[2019-08-22] MEDS ORDERED: DIPHENHYDRAMINE HCL 50 MG/ML VIAL IV PRN (08:49)
--- NOTE | 2019-08-22 09:15 | EKG REPORT ---
SEVERITY:- ABNORMAL ECG - SINUS RHYTHM LEFT VENTRICULAR HYPERTROPHY : Confirmed by: Noel Gómez 22-Aug-2019 09:15:16
--- NOTE | 2019-08-22 09:16 | EKG REPORT ---
SEVERITY:- ABNORMAL ECG - SINUS RHYTHM LEFT VENTRICULAR HYPERTROPHY : Confirmed by: Noel Gómez 22-Aug-2019 09:15:19
[2019-08-22] MEDS ORDERED: FAMOTIDINE INJ/PF 20 MG/2 ML SDV IV SCH (10:00)
[2019-08-22] MEDS ORDERED: FENTANYL CITRATE INJ/PF 100 MCG/2 ML AMPUL ONE (10:00)
[2019-08-22] MEDS: FENTANYL CITRATE INJ/PF 100 MCG/2 ML AMPUL IV PRN ×2 (10:03→10:21)
--- NOTE | 2019-08-22 10:03 | Operative Report ---
Operative Report DATE OF SURGERY: 08/22/19 PREOPERATIVE DIAGNOSIS: Incarcerated ventral hernia POSTOPERATIVE DIAGNOSIS: Incarcerated ventral hernia with omentum OPERATION: Primary repair of incarcerated ventral hernia. Partial omentectomy SURGEON: LONG PATTERSON ANESTHESIA: GA TISSUE REMOVED OR ALTERED: omentum and hernia sac COMPLICATIONS: none ESTIMATED BLOOD LOSS: 5 ccs QUANTITATIVE BLOOD LOSS: 5 INTRAOPERATIVE FINDINGS: incarcerated umbilical hernia PROCEDURE: Patient was placed in supine supine position and after adequate general anesthesia the abdomen was then prepped and draped in usual sterile fashion. Timeout timeout was then called. A transverse incision made over the palpable lump over the upper abdomen. In the sac was then identified and opened. A small amount of dark fluid noted. Omentum was then dissected close to the area of the hernia defect. Omentum was then serially clamped with right angle clamp and divided and then ligated underneath the clamp with 0 Vicryl sutures. There was not any evidence of bowel involvement. The bowel appears to be stuck about half an inch from the defect but it appears to be viable. The defect roughly measures about 1.5 cm in diameter. Because of the relatively small size and the fact that the bowel was very close to the defect was decided to just closed the defect primarily with 0 Prolene. It appears to be more prudent to hold off on the dissection of the bowel from the adhesions because of the risk of any injury to the bowel. And rate the defect was then closed with the 2 [id number] 2 [id number] sutures of 0 Vicryl single oval Prolene suture placed over the midline or in between the 2 Prolene sutures. The abdominal cavity was then irrigated. The rest of the sac was then divided all the sac and omentum were passed off the table to be sent for pathology. Adequate hemostasis was noted with the cautery. The subcu and defect was closed with 2-0 Vicryl and the skin closed with geovanna. Patient tolerated procedure well. Sterile 4 x 4 were placed as dressing. Needle instrument sponge control correct estimated blood loss was about 5 cc. Patient brought to recovery room satisfactory condition extubated
[2019-08-22] MEDS: ONDANSETRON HCL INJ/PF 4 MG/2 ML SDV IV PRN ×3 (11:43→23:32)
[2019-08-22] MEDS: KETOROLAC TROMETHAMINE INJ/PF 30 MG/1 ML SDV IV SCH ×3 (13:28→23:31)
[2019-08-22] MEDS ORDERED: KETOROLAC TROMETHAMINE INJ/PF 30 MG/1 ML SDV IV SCH (14:00)
[2019-08-22] MEDS ORDERED: NEOSTIGMINE METHYLSULFATE 10 MG/10 ML VIAL ONE (15:09)
[2019-08-22] MEDS ORDERED: DEXAMETHASONE SOD PHOSPHATE INJ 4 MG/1 ML VIAL ONE (15:09)
[2019-08-22] MEDS ORDERED: ROCURONIUM BROMIDE INJ 50 MG/5 ML VIAL IV ONE (15:09)
[2019-08-22] MEDS ORDERED: SUCCINYLCHOLINE CHLORIDE INJ 200 MG/10 ML VIAL ONE (15:09)
[2019-08-22] MEDS ORDERED: LIDOCAINE 2% INJ-PF (20 MG/ML) 2 ML AMPUL ONE (15:09)
[2019-08-22] MEDS ORDERED: ONDANSETRON HCL INJ/PF 4 MG/2 ML SDV ONE (15:09)
[2019-08-22] MEDS ORDERED: GLYCOPYRROLATE 1 MG/5 ML VIAL ONE (15:09)
[2019-08-22] MEDS: MAG HYDROX/AL HYDROX/SIMETH SUSP 30 ML UDCUP PO PRN ×2 (17:22→23:31)
[2019-08-22] MEDS: FAMOTIDINE 20 MG TABLET PO SCH (17:22)
[2019-08-22] MEDS: CEFAZOLIN SODIUM 2 GM in DEXTROSE 5%-WATER 100 ML IV SCH (17:23)
[2019-08-23] MEDS: MORPHINE SULFATE 10 MG/ML INJ IV PRN (01:41)
[2019-08-23] MEDS: CEFAZOLIN SODIUM 2 GM in DEXTROSE 5%-WATER 100 ML IV SCH ×2 (01:42→09:14)
[2019-08-23] MEDS: KETOROLAC TROMETHAMINE INJ/PF 30 MG/1 ML SDV IV SCH (05:58)
[2019-08-23] MEDS: FAMOTIDINE 20 MG TABLET PO SCH (09:15)
--- NOTE | 2019-08-23 11:28 | PDOC DISCHARGE SUMMARY ---
General - Admit/Disc Date/PCP Admission Date/Primary Care Provider: 08/22/19 06:18 Discharge Date: 08/23/19 - Discharge Diagnosis Final Diagnosis: Incarcerated ventral hernia - Assessment Summary: 49-year-old male with history of laparoscopic cholecystectomy 2 years ago. Developed hernia that initially was reducible. Unfortunately in the past few days it has been more painful and CAT scan in the ED showed incarcerated omentum. Since patient is with considerable amount of pain patient taken to the OR were repair of the incarcerated ventral hernia was done with primary closure using 0 Prolene. Postoperatively patient did very well and discharged improved on 08/23/2019 to be followed up in the surgical clinic in 2 weeks for removal of geovanna. Patient given a prescription for Toradol. - Additional Information Resuscitation Status: Full Code Discharge Diet: Regular Discharge Activity: Activity As Tolerated Home Medications: Acetaminophen [Tylenol Extra Strength 500 mg Tablet] 1,000 mg PO HSP PRN 08/22/19 Diphenhydramine HCl [Benadryl 50 mg Capsule] 50 mg PO QHS 08/22/19 Ibuprofen [Motrin 800 mg Tablet] 800 mg PO HSP PRN 08/22/19 History of Present Illiness History of Present Illness: ITA BROUSSARD III is a 49 year old male Physical Exam Vital Signs: Temp Pulse Resp BP Pulse Ox 97.6 F 90 18 141/108 H 99 08/23/19 11:21 08/23/19 11:21 08/23/19 11:21 08/23/19 11:21 08/23/19 11:21 Intake & Output 08/22/19 08/23/19 08/24/19 06:59 06:59 06:59 Intake Total 1000 3597 100 Output Total 5 Balance 1000 3592 100 Weight 101.6 kg 103.7 kg Results Laboratory Results: WBC 8.5 10^3/uL (4.0-10.5) 08/22/19 00:43 RBC 4.95 10^6/uL (4.35-5.55) 08/22/19 00:43 Hgb 14.6 g/dL (13.5-17.0) 08/22/19 00:43 Hct 42.8 % (37.9-51.0) 08/22/19 00:43 MCV 86 fl (80-97) 08/22/19 00:43 MCH 29.4 pg (27.0-33.4) 08/22/19 00:43 MCHC 34.1 g/dL (32.0-36.0) 08/22/19 00:43 RDW 13.6 % (11.5-14.0) 08/22/19 00:43 Plt Count 280 10^3/uL (150-450) 08/22/19 00:43 Lymph % (Auto) 20.9 % (13-45) 08/22/19 00:43 Gregory % (Auto) 10.4 % (3-13) 08/22/19 00:43 Eos % (Auto) 1.8 % (0-6) 08/22/19 00:43 Baso % (Auto) 0.4 % (0-2) 08/22/19 00:43 Absolute Neuts (auto) 5.6 10^3/uL (1.7-8.2) 08/22/19 00:43 Absolute Lymphs (auto) 1.8 10^3/uL (0.5-4.7) 08/22/19 00:43 Absolute Monos (auto) 0.9 10^3/uL (0.1-1.4) 08/22/19 00:43 Absolute Eos (auto) 0.2 10^3/uL (0.0-0.6) 08/22/19 00:43 Absolute Basos (auto) 0.0 10^3/uL (0.0-0.2) 08/22/19 00:43 Seg Neutrophils % 66.5 % (42-78) 08/22/19 00:43 Sodium 139.5 mmol/L (137-145) 08/22/19 00:43 Potassium 4.1 mmol/L (3.6-5.0) 08/22/19 00:43 Chloride 100 mmol/L (98-107) 08/22/19 00:43 Carbon Dioxide 28 mmol/L (22-30) 08/22/19 00:43 Anion Gap 12 (5-19) 08/22/19 00:43 BUN 13 mg/dL (7-20) 08/22/19 00:43 Creatinine 1.36 mg/dL (0.52-1.25) H 08/22/19 00:43 Est GFR ( Amer) > 60 (>60) 08/22/19 00:43 Est GFR (MDRD) Non-Af 55 (>60) L 08/22/19 00:43 Glucose 103 mg/dL (75-110) 08/22/19 00:43 Lactic Acid 1.0 mmol/L (0.7-2.1) 08/22/19 04:48 Calcium 9.8 mg/dL (8.4-10.2) 08/22/19 00:43 Total Bilirubin 0.9 mg/dL (0.2-1.3) 08/22/19 00:43 Direct Bilirubin 0.2 mg/dL (0.0-0.4) 08/22/19 00:43 Neonat Total Bilirubin Not Reportable 08/22/19 00:43 Neonat Direct Bilirubin Not Reportable 08/22/19 00:43 Neonat Indirect Bili Not Reportable 08/22/19 00:43 AST 33 U/L (17-59) 08/22/19 00:43 ALT 38 U/L (<50) 08/22/19 00:43 Alkaline Phosphatase 97 U/L (38-126) 08/22/19 00:43 Total Protein 7.9 g/dL (6.3-8.2) 08/22/19 00:43 Albumin 4.6 g/dL (3.5-5.0) 08/22/19 00:43 Lipase 135.6 U/L (23-300) 08/22/19 00:43 Urine Color YELLOW 08/22/19 00:43 Urine Appearance CLEAR 08/22/19 00:43 Urine pH 6.0 (5.0-9.0) 08/22/19 00:43 Ur Specific [place] 1.014 08/22/19 00:43 Urine Protein 100 mg/dL (NEGATIVE) H 08/22/19 00:43 Urine Glucose (UA) NEGATIVE mg/dL (NEGATIVE) 08/22/19 00:43 Urine Ketones NEGATIVE mg/dL (NEGATIVE) 08/22/19 00:43 Urine Blood MODERATE (NEGATIVE) H 08/22/19 00:43 Urine Nitrite NEGATIVE (NEGATIVE) 08/22/19 00:43 Urine Bilirubin NEGATIVE (NEGATIVE) 08/22/19 00:43 Urine Urobilinogen NEGATIVE mg/dL (<2.0) 08/22/19 00:43 Ur Leukocyte Esterase MODERATE (NEGATIVE) H 08/22/19 00:43 Urine WBC (Auto) 12 /HPF 08/22/19 00:43 Urine RBC (Auto) 7 /HPF 08/22/19 00:43 Squamous Epi Cells Auto <1 /HPF 08/22/19 00:43 Urine Mucus (Auto) RARE /LPF 08/22/19 00:43 Urine Ascorbic Acid NEGATIVE (NEGATIVE) 08/22/19 00:43 Impressions: Abdomen/Pelvis CT 08/22/19 04:30 IMPRESSION: Fat-containing supraumbilical abdominal wall hernia containing no bowel. Mild associated inflammation. Persistent left hydronephrosis with a ureteral stent in place.
[2019-08-23 11:52] VITALS: BP 131/74
== END 2019-08-23 12:15 | disposition home or self-care (01) ==
LOC: ER 23:05 → EH 08-22 06:18 → 5 08-22 11:10
PROC: 0WQF0ZZ Repair Abdominal Wall, Open Approach (ICD-10-PCS; principal; 2019-08-22 08:45)
DX: K43.6 Other and unspecified ventral hernia with obstruction, without gangrene (principal); K42.0 Umbilical hernia with obstruction, without gangrene; Z90.49 Acquired absence of other specified parts of digestive tract; R30.0 Dysuria; N13.39 Other hydronephrosis; Z87.442 Personal history of urinary calculi; Z96.0 Presence of urogenital implants
CPT/HCPCS: 93005 ×2; 99285; 96361; 96374; 96375; 36415; 87086; 83605; 83690; 85025; 80053; 81001; 88302 ×2; 74176; 93010 ×2; 00752; 49561; J2250; J3490 ×4; J0690 ×2; J1100; J3010 ×2; J1885 ×2; J2765; J2270 ×2; J2710; J1170; J0330; J2405; J7060 ×2; J7030; J2704; S0028; 752; G0378

== ENCOUNTER 2020-04-27 17:35 | Emergency (ER) | payer SELFPAY ==
--- NOTE | 2020-04-27 18:01 | ER Document Report ---
ED Medical Screen (RME) - General Chief Complaint: Abdominal Pain Stated Complaint: STOMACH PAIN Time Seen by Provider: 04/27/20 17:57 Mode of Arrival: Ambulatory Information source: Patient Notes: 50-year-old male patient presents the emergency department chief complaint of abdominal pain. Patient reports history of umbilical hernia with repair. He states over the last few days her hernia has protruded outward. He states that he is unable to reduce it. It is tender to palpation. I have greeted and performed a rapid initial assessment of this patient. A comprehensive ED assessment and evaluation of the patient, analysis of test results and completion of the medical decision making process will be conducted by additional ED providers. I have specifically instructed the patient or family members with the patient to immediately return to any nursing staff should anything change in the patient's condition or with their chief complaint. TRAVEL OUTSIDE OF THE [place] IN LAST 30 DAYS: No - Related Data Allergies/Adverse Reactions: No Known Allergies Allergy (Verified 06/06/19 00:33) Past Medical History - Past Medical History Cardiac Medical History: Reports: Hx Hypertension Neurological Medical History: Reports: Hx Seizures - A CHILD Renal/ Medical History: Reports: Hx Kidney Stones - Had surgery. Denies: Hx Peritoneal Dialysis GI Medical History: Reports: Hx Gastroesophageal Reflux Disease - VOMITS OFTEN Psychiatric Medical History: Reports: Hx Depression Past Surgical History: Reports: Hx Appendectomy - Ruptured, Hx Cholecystectomy, Hx Herniorrhaphy, Hx Kidney (Renal Surgery), Other - For kidney stone - Immunizations Hx Diphtheria, Pertussis, Tetanus Vaccination: Yes Physical Exam - Vital signs Vitals: Temp Pulse Resp BP Pulse Ox 97.9 F 92 18 141/99 H 99 04/27/20 17:47 04/27/20 17:47 04/27/20 17:47 04/27/20 17:47 04/27/20 17:47 Course - Vital Signs Vital signs: Temp Pulse Resp BP Pulse Ox 97.9 F 92 18 141/99 H 99 04/27/20 17:47 04/27/20 17:47 04/27/20 17:47 04/27/20 17:47 04/27/20 17:47
--- NOTE | 2020-04-27 18:15 | ER Document Report ---
ED General - General Chief Complaint: Abdominal Pain Stated Complaint: STOMACH PAIN Time Seen by Provider: 04/27/20 17:57 Mode of Arrival: Ambulatory Information source: Patient Notes: triage notes 04/27/20 17:59 - ED Nursing Note by EDY CLARKE Num: [id number] : 1970 Patient Age: 50 Pt presents to ED for central abdominal pain. The pt did have a hernia repair last june. His pain is similar to the pain he experienced at that time. The pt is aox4. Resps even and unlabored. my notes 50-year-old male arrives with chief complaint of periumbilical pain and swelling for the last 2 weeks. The pain is around 5 out of 10 hand has been progressively worsening over the last 2 weeks. He last ate around 1.5 hours ago which consisted of chicken and fries. Patient denies any nausea. Patient reports he had surgery to his mid abdomen around his periumbilical area around 1 year ago here at [place]. He reports he had hernia repair. He reported the hernia was quite large around the size of a bowling ball at that time. Patient also has a midline scar from his umbilicus to the suprapubic area from a ruptured appendix and gallbladder resection in 2002. He also has some lap scars right upper quadrant x2 for the gallbladder removal.. Patient denies any fever chills cough or cold skin rash coronavirus exposure. We are currently in a coronavirus pandemic. TRAVEL OUTSIDE OF THE [place] IN LAST 30 DAYS: No - HPI Onset: Just prior to arrival Onset/Duration: Gradual, Persistent, Worse Quality of pain: Achy Severity: Moderate Pain Level: 3 Associated symptoms: None Exacerbated by: Food Relieved by: Denies Similar symptoms previously: Yes Recently seen / treated by doctor: No - Related Data Allergies/Adverse Reactions: No Known Allergies Allergy (Verified 06/06/19 00:33) Past Medical History - General Information source: Patient - Social History Smoking Status: Never Smoker Cigarette use (# per day): No Chew tobacco use (# tins/day): No Smoking Education Provided: No Frequency of alcohol use: None Drug Abuse: None Lives with: Family Family History: Arthritis, CAD, CVA, DM, Hyperlipidemia, Hypertension Patient has homicidal ideation: No - Past Medical History Cardiac Medical History: Reports: Hx Hypertension Neurological Medical History: Reports: Hx Seizures - A CHILD Renal/ Medical History: Reports: Hx Kidney Stones - Had surgery. Denies: Hx Peritoneal Dialysis GI Medical History: Reports: Hx Gastroesophageal Reflux Disease - VOMITS OFTEN Psychiatric Medical History: Reports: Hx Depression Past Surgical History: Reports: Hx Appendectomy - Ruptured, Hx Cholecystectomy, Hx Herniorrhaphy, Hx Kidney (Renal Surgery), Other - For kidney stone - Immunizations Hx Diphtheria, Pertussis, Tetanus Vaccination: Yes Review of Systems - Review of Systems -: Yes ROS unobtainable due to patient's medical condition Constitutional: No symptoms reported EENT: No symptoms reported Cardiovascular: No symptoms reported Respiratory: No symptoms reported Gastrointestinal: See HPI, Abdomen distended, Abdominal pain Genitourinary: No symptoms reported Male Genitourinary: No symptoms reported Musculoskeletal: No symptoms reported Skin: No symptoms reported. denies: Change in color, Change in hair/nails, Dryness, Lesions, Lumps, Rash Hematologic/Lymphatic: No symptoms reported Neurological/Psychological: No symptoms reported Physical Exam - Vital signs Vitals: Temp Pulse Resp BP Pulse Ox 97.9 F 92 18 141/99 H 99 04/27/20 17:47 04/27/20 17:47 04/27/20 17:47 04/27/20 17:47 04/27/20 17:47 Interpretation: Hypertensive - General General appearance: Alert - HEENT Head: Normocephalic, Atraumatic Eyes: Normal Pupils: PERRL Sinus: Normal Nasal: Normal Mouth/Lips: Normal Teeth diagram: 1 - caries to gumline Pharynx: Normal Neck: Normal - Respiratory Respiratory status: No respiratory distress Chest status: Nontender Breath sounds: Normal Chest palpation: Normal - Cardiovascular Rhythm: Regular Heart sounds: Normal auscultation Murmur: No Normal capillary refill: Yes - Abdominal Inspection: Healed incision, Obese Distension: Distended Bowel sounds: Normal Tenderness: Tender Organomegaly: No organomegaly - Rectal Hemorrhoids: Other - deferred - Genitourinary Tenderness: Other - deferred - Back Back: Normal - Extremities General upper extremity: Normal inspection, Nontender, Normal color, Normal ROM, Normal temperature General lower extremity: Normal inspection, Nontender, Normal color, Normal ROM, Normal temperature, Normal weight bearing. No: Austen's sign - Neurological Neuro grossly intact: Yes Cognition: Normal Orientation: AAOx4 [place] Coma Scale Eye Opening: Spontaneous [place] Coma Scale Verbal: Oriented [place] Coma Scale Motor: Obeys Commands Thom Coma Scale Total: 15 Speech: Normal Motor strength normal: LUE, RUE, LLE, RLE Sensory: Normal - Psychological Associated symptoms: Normal affect - Skin Skin Temperature: Warm Skin Moisture: Dry Skin Color: Normal Course - Vital Signs Vital signs: Temp Pulse Resp BP Pulse Ox 97.9 F 92 18 141/99 H 99 04/27/20 17:58 04/27/20 17:47 04/27/20 17:47 04/27/20 17:47 04/27/20 17:47 - Laboratory Result Diagrams: 04/27/20 18:05 04/27/20 18:05 Laboratory results interpreted by me: 04/27/20 04/27/20 04/27/20 18:05 18:05 18:13 Eos % (Auto) 6.1 H Creatinine 1.38 H Est GFR (MDRD) Non-Af 54 L Glucose 112 H Urine Protein 100 H Urine Blood MODERATE H Ur Leukocyte Esterase SMALL H - Diagnostic Test Radiology reviewed: Reports reviewed - CT scan abdomen with contrast oral and IV revealed fatty liver left hydronephrosis left mid ureter calcification 4 mm and ventral hernia with loop of bowel but no SBO and bilateral inguinal hernias Critical Care Note - Critical Care Note Total time excluding time spent on procedures (mins): 90 Comments: I advised patient of his lab work and his CT scans and advised him to follow-up with surgeon this week. Return to ER if symptoms persist or worsen Discharge - Discharge Clinical Impression: Abdominal pain Qualifiers: Abdominal location: periumbilical Qualified Code(s): R10.33 - Periumbilical pain Umbilical hernia Qualifiers: Obstruction and gangrene presence: without obstruction or gangrene Qualified Code(s): K42.9 - Umbilical hernia without obstruction or gangrene Ventral hernia Qualifiers: Obstruction and gangrene presence: without obstruction or gangrene Qualified Code(s): K43.9 - Ventral hernia without obstruction or gangrene Hydronephrosis Qualifiers: Hydronephrosis type: other Qualified Code(s): N13.39 - Other hydronephrosis Condition: Good Disposition: HOME, SELF-CARE Additional Instructions: Follow-up with surgeon this week if symptoms persist or worsen and may return to ER if symptoms continue or worsen. Take medicines as directed encourage fluids and avoid lifting bending or twisting until seen by personal doctor Prescriptions: Misoprostol [Cytotec 0.2 mg Tablet] 0.2 mg PO BID #10 tablet Chlorzoxazone [Parafon Forte Dsc 500 Mg Tablet] 500 mg PO BID PRN #15 tablet PRN Reason: Forms: Return to Work
[2020-04-27 18:32] LABS: ABSOLUTE EOSINOPHILS # (AUTO) 0.4 10^3/uL (0.0-0.6); ABSOLUTE LYMPHOCYTES (AUTO) 1.7 10^3/uL (0.5-4.7); ABSOLUTE MONOCYTES (AUTO) 0.5 10^3/uL (0.1-1.4); ABSOLUTE NEUT (AUTO) 3.8 10^3/uL (1.7-8.2); BASOPHILS % (AUTO) 0.5 % (0-2); EOSINOPHILS % (AUTO) 6.1 % (0-6); HEMATOCRIT 43.5 % (37.9-51.0); HEMOGLOBIN 14.8 g/dL (13.5-17.0); LYMPHOCYTES % (AUTO) 26.8 % (13-45); MEAN CORPUSCULAR HEMOGLOBIN 29.4 pg (27.0-33.4); MEAN CORPUSCULAR HGB CONC 34.1 g/dL (32.0-36.0); MEAN CORPUSCULAR VOLUME 86 fl (80-97); MONOCYTES % (AUTO) 8.1 % (3-13); PLATELET COUNT 268 10^3/uL (150-450); RED BLOOD COUNT 5.04 10^6/uL (4.35-5.55); RED CELL DISTRIBUTION WIDTH 13.4 % (11.5-14.0); SEGMENTED NEUTROPHILS % (AUTO) 58.5 % (42-78); TOTAL CELLS COUNTED % (AUTO) 100 %; WHITE BLOOD COUNT 6.4 10^3/uL (4.0-10.5)
[2020-04-27 18:42] LABS: APPEARANCE,URINE SLIGHTLY-CLOUDY; BILIRUBIN,URINE NEGATIVE (NEGATIVE); COLOR,URINE YELLOW; GLUCOSE, URINE NEGATIVE (NEGATIVE); KETONES,URINE NEGATIVE (NEGATIVE); LEUKOCYTE ESTERASE,URINE SMALL (NEGATIVE); NITRITE,URINE NEGATIVE (NEGATIVE); PROTEIN,URINE 100 mg/dL (NEGATIVE); URINE SPECIFIC GRAVITY 1.016; UROBILINOGEN,URINE NEGATIVE mg/dL (<2.0)
[2020-04-27 18:47] LABS: ALBUMIN 4.4 g/dL (3.5-5.0); ALKALINE PHOSPHATASE 95 U/L (38-126); ANION GAP 10 (5-19); ASPARTATE AMINO TRANSFERASE 24 U/L (17-59); BILIRUBIN,TOTAL 0.4 mg/dL (0.2-1.3); BLOOD UREA NITROGEN 13 mg/dL (7-20); CALCIUM 9.6 mg/dL (8.4-10.2); CARBON DIOXIDE 26 mmol/L (22-30); CHLORIDE 101 mmol/L (98-107); GLUCOSE 112 mg/dL (75-110); POTASSIUM 4.4 mmol/L (3.6-5.0); TOTAL PROTEIN 7.7 g/dL (6.3-8.2)
[2020-04-27] MEDS ORDERED: ONDANSETRON HCL INJ/PF 4 MG/2 ML SDV IV ONE (18:55)
[2020-04-27] MEDS ORDERED: MORPHINE SULFATE 10 MG/ML INJ IV ONE (18:55)
[2020-04-27] MEDS ORDERED: NORMAL SALINE 1000 ML 1,000 ML IV ONE (18:56)
--- NOTE | 2020-04-27 21:41 | RADIOLOGY REPORT (SQ) ---
EXAM DESCRIPTION: Contrast-enhanced CT scan of the abdomen and pelvis. CLINICAL HISTORY: 50 years Male; pain TECHNIQUE: CT of the abdomen and pelvis with intravenous contrast. Delayed imaging of the abdomen and pelvis was also performed. All CT scans at this facility use dose modulation, iterative reconstruction, and/or weight based dosing when appropriate to reduce radiation dose to as low as reasonably achievable. This exam was performed according to our department optimization program which includes automated exposure control, adjustment of the mA and/or kv according to patient size and/or use of iterative reconstruction technique. COMPARISON: Unenhanced CT scan of the abdomen and pelvis August 22, 2019 FINDINGS: Lower chest:The lung bases are clear. The visualized portion of heart and great vessels are normal. Abdomen: Liver and biliary tree: Diffuse fatty infiltration of the liver is identified. The gallbladder surgically absent. Portal vein and hepatic veins are patent. No biliary dilatation. Pancreas: Normal Spleen:Within normal limits Kidneys: Chronic left-sided hydronephrosis is again identified with renal cortical thinning. Double-J ureteral stent is seen extending from the left renal pelvis into the bladder. Adjacent to the ureteral stent at the level of the iliac crest is a focal stone or calcification measuring 4 mm. This is unchanged from the previous exam. There is irregularity of the pigtail coil in the bladder suggesting calcifications of the catheter. Mild fullness of the right renal collecting system is noted in the right ureter is mildly prominent as well. No right-sided stones. Symmetric renal enhancement is identified. On delayed images there is symmetric contrast excretion. Adrenal glands:Within normal limits Vascular structures:Within normal limits Retroperitoneum: No mass or lymphadenopathy Abdominal wall: Ventral abdominal wall hernia is seen just above the umbilicus. This now contains a loop of nonobstructed small bowel. Previously the hernia containing omentum. There are bilateral inguinal hernias containing fat. GI: Scattered stool is present in the colon. The bowel is not dilated. No focal bowel wall thickening. No obstruction. Appendix: The appendix is not clearly seen. General: No free air. No free fluid Pelvis: Lymph nodes: No mass or lymphadenopathy Bladder: Unremarkable. Pelvis: No pelvic mass or adenopathy. Bones: No acute bone findings. IMPRESSION: 1. Fatty infiltration of the liver. 2. Chronic nonobstructing left-sided hydronephrosis. There is calcification in the mid left ureter measuring 4 mm which is unchanged. 3. Midline ventral hernia containing a loop of small bowel. No bowel obstruction. 4. Bilateral inguinal hernias containing fat.
[2020-04-27] MEDS ORDERED: HYDROCODONE/ACETAMINOPHEN 5-325 MG (6 TAB/ER DISP) PO PRN (22:48)
[2020-04-27 23:33] VITALS: BP 149/95
== END 2020-04-27 23:36 | disposition home or self-care (01) ==
LOC: ER 17:35
DX: K42.9 Umbilical hernia without obstruction or gangrene (principal); K43.9 Ventral hernia without obstruction or gangrene; N13.30 Unspecified hydronephrosis; K40.20 Bilateral inguinal hernia, without obstruction or gangrene, not specified as recurrent; N28.89 Other specified disorders of kidney and ureter; R10.33 Periumbilical pain; R10.819 Abdominal tenderness, unspecified site; K76.0 Fatty (change of) liver, not elsewhere classified; K02.9 Dental caries, unspecified; I10 Essential (primary) hypertension; Z87.442 Personal history of urinary calculi; Z87.19 Personal history of other diseases of the digestive system; Z90.49 Acquired absence of other specified parts of digestive tract
CPT/HCPCS: 99284; 96361; 96374; 96375; 36415; 83690; 85025; 80053; 81001; 74177; J2270; J2405; J7030

== ENCOUNTER 2020-05-27 18:29 | Emergency (ER) | payer SELFPAY ==
[2020-05-27] MEDS ORDERED: NORMAL SALINE 500 ML IV ONE (21:17)
[2020-05-27 21:57] LABS: ABSOLUTE LYMPHOCYTES (AUTO) 0.8 10^3/uL (0.5-4.7); ABSOLUTE MONOCYTES (AUTO) 0.5 10^3/uL (0.1-1.4); ABSOLUTE NEUT (AUTO) 10.6 10^3/uL (1.7-8.2); BASOPHILS % (AUTO) 0.2 % (0-2); EOSINOPHILS % (AUTO) 0.2 % (0-6); HEMOGLOBIN 15.6 g/dL (13.5-17.0); LYMPHOCYTES % (AUTO) 6.7 % (13-45); MEAN CORPUSCULAR HEMOGLOBIN 29.4 pg (27.0-33.4); MEAN CORPUSCULAR HGB CONC 33.9 g/dL (32.0-36.0); MEAN CORPUSCULAR VOLUME 87 fl (80-97); PLATELET COUNT 271 10^3/uL (150-450); RED CELL DISTRIBUTION WIDTH 13.6 % (11.5-14.0); SEGMENTED NEUTROPHILS % (AUTO) 88.9 % (42-78); TOTAL CELLS COUNTED % (AUTO) 100 %; WHITE BLOOD COUNT 11.9 10^3/uL (4.0-10.5)
[2020-05-27 22:18] LABS: ALBUMIN 4.9 g/dL (3.5-5.0); ALKALINE PHOSPHATASE 115 U/L (38-126); ANION GAP 9 (5-19); ASPARTATE AMINO TRANSFERASE 25 U/L (17-59); BILIRUBIN,DIRECT 0.1 mg/dL (0.0-0.4); BILIRUBIN,TOTAL 0.7 mg/dL (0.2-1.3); BLOOD UREA NITROGEN 13 mg/dL (7-20); CALCIUM 10.2 mg/dL (8.4-10.2); CARBON DIOXIDE 27 mmol/L (22-30); CHLORIDE 101 mmol/L (98-107); GLUCOSE 123 mg/dL (75-110); POTASSIUM 4.5 mmol/L (3.6-5.0); TOTAL PROTEIN 8.3 g/dL (6.3-8.2)
[2020-05-27] MEDS ORDERED: ONDANSETRON HCL INJ/PF 4 MG/2 ML SDV IV ONE (22:49)
--- NOTE | 2020-05-27 23:59 | ER Document Report ---
ED GI/ - General Chief Complaint: Upper Abdominal Pain Stated Complaint: ABDOMINAL PAIN/NAUSEA/VOMITING Time Seen by Provider: 05/27/20 22:02 Notes: Patient is a 50-year-old male who presents emergency department with a chief complaint of abdominal pain. Patient states that he has on and off abdominal pain and has had it for the past month. Patient has history of an incarcerated hernia this past July, which was repaired here in the hospital. Patient states that he has had some nausea and vomiting that started today. States that he vomited about 6 times. TRAVEL OUTSIDE OF THE [place] IN LAST 30 DAYS: No - Related Data Allergies/Adverse Reactions: No Known Allergies Allergy (Verified 06/06/19 00:33) Past Medical History - Social History Smoking Status: Never Smoker Chew tobacco use (# tins/day): No Frequency of alcohol use: None Drug Abuse: None Family History: Arthritis, CAD, CVA, DM, Hyperlipidemia, Hypertension Patient has homicidal ideation: No - Past Medical History Cardiac Medical History: Reports: Hx Hypertension Neurological Medical History: Reports: Hx Seizures - A CHILD Renal/ Medical History: Reports: Hx Kidney Stones - Had surgery. Denies: Hx Peritoneal Dialysis GI Medical History: Reports: Hx Gastroesophageal Reflux Disease - VOMITS OFTEN Psychiatric Medical History: Reports: Hx Depression Past Surgical History: Reports: Hx Appendectomy - Ruptured, Hx Cholecystectomy, Hx Herniorrhaphy, Hx Kidney (Renal Surgery), Other - For kidney stone - Immunizations Hx Diphtheria, Pertussis, Tetanus Vaccination: Yes Review of Systems - Review of Systems Notes: REVIEW OF SYSTEMS: CONSTITUTIONAL : Denies recent illness. Denies recent unintentional weight loss. Denies fever, chills, or sweats. EENT: Denies eye, ear, throat, or mouth pain, discharge, or symptoms. Denies nasal or sinus congestion. CARDIOVASCULAR: Denies chest pain. RESPIRATORY: Denies shortness of breath, cough, congestion, difficulty breathing, or wheezing. GASTROINTESTINAL: See HPI. GENITOURINARY: Denies difficulty urinating, burning, blood in urine, urgency or frequency. MUSCULOSKELETAL: Denies neck and back pain. Denies joint pain or swelling. SKIN: Denies rash, itchiness, or lesions HEMATOLOGIC : Denies easy bruising or bleeding. LYMPHATIC: Denies swollen, painful, enlarged glands. NEUROLOGICAL: Denies no numbness or tingling denies weakness. Denies headache. Denies altered mental status. Denies alteration in speech. PSYCHIATRIC: Denies stress, anxiety, alteration in sleep patterns, or depression. All other systems reviewed and negative. Physical Exam - Vital signs Vitals: Temp Pulse Resp BP Pulse Ox 97.5 F 86 18 155/108 H 97 05/27/20 20:38 05/27/20 20:38 05/27/20 20:38 05/27/20 20:38 05/27/20 20:38 - Notes Notes: PHYSICAL EXAMINATION: GENERAL: Appears well, healthy, well-nourished, no acute distress. HEAD: Normocephalic, atraumatic. EYES: PERRL, conjunctiva normal, all extraocular movements intact, sclera nonicteric ENT: Moist mucous membranes. NECK: Supple, no noticeable swelling, redness, rash. Normal range of motion. LUNGS: Equal breath sounds bilaterally and clear to auscultation. No wheezes rales or rhonchi. CARDIOVASCULAR: S1-S2, regular rate, regular rhythm. Radial pulses 2+, normal. ABDOMEN: Normoactive bowel sounds. Soft, tender mid abdomen at old incision site, no guarding, no rebound tenderness, and no masses palpated. EXTREMITIES: Normal strength and range of motion, no pitting or edema. No cyanosis. NEUROLOGICAL: Moves all extremities upon command. Strength 5/5 in all extr emities. PSYCH: Normal mood, normal affect. SKIN: Warm, dry. No rash, lesions, ulcerations noted. Normal skin turgor. Course - Re-evaluation Re-evalutation: 05/28/20 02:[address] Tan, the radiologist and he reports that the patient has a early incarcerated strangulated supraumbilical hernia. He is commending r eduction and if I am unable to reduce the hernia, to consult surgery. 05/28/20 02:25 I was able to reduce the hernia. Patient tolerated procedure well. Patient was not very tender and I was able to reduce the hernia with no pain medicine. Patient states that he follow-up at [facility] after the reduction. Patient will be placed in an abdominal binder. We will send him home with Douglasyl for abdominal cramping. We will also send him home with Nicko. Instructions to eat soft foods. He is in agreement with this plan. Follow-up precautions were given. Verbal discharge instructions were given to the patient. They verbalized understanding. They are stable for discharge. - Vital Signs Vital signs: Temp Pulse Resp BP Pulse Ox 97.9 F 89 18 134/92 H 100 05/28/20 01:40 05/28/20 01:40 05/27/20 20:38 05/28/20 01:40 05/28/20 01:40 - Laboratory Result Diagrams: 05/27/20 21:30 05/27/20 21:30 Laboratory results interpreted by me: 05/27/20 05/27/20 05/28/20 21:30 21:30 00:50 WBC 11.9 H Lymph % (Auto) 6.7 L Absolute Neuts (auto) 10.6 H Seg Neutrophils % 88.9 H Glucose 123 H Total Protein 8.3 H Urine Protein 30 H Ur Leukocyte Esterase TRACE H Discharge - Discharge Clinical Impression: Umbilical hernia Qualifiers: Obstruction and gangrene presence: without obstruction or gangrene Qualified Code(s): K42.9 - Umbilical hernia without obstruction or gangrene Condition: Stable Disposition: HOME, SELF-CARE Additional Instructions: You were seen today in the emergency department for abdominal pain. Your hernia came out. It was reduced here in the emergency department. Please wear the abdominal binder. Please do not lift any objects, as this will make your hernia worse. You are being placed in an abdominal binder. Wear this until you speak with the surgeon. Follow-up with surgery in the next 3 to 5 days. Prescriptions: Dicyclomine HCl [Bentyl 20 mg Tablet] 20 mg PO QID PRN #20 tablet PRN Reason: Ondansetron [Zofran Odt 4 mg Tablet] 1 - 2 tab PO Q4H PRN #30 tab.rapdis PRN Reason: For Nausea/Vomiting Referrals: [facility] [Provider Group] - Follow up in 3-5 days
--- NOTE | 2020-05-28 01:38 | RADIOLOGY REPORT (SQ) ---
CT abdomen and pelvis with contrast on 05/28/2020 at 12:58 AM CLINICAL INDICATION: Generalized abdominal pain, history of hernia surgery with pain at hernia repair site TECHNIQUE: Multiple axial images are obtained throughout the abdomen and pelvis following the administration of IV contrast, 100 mL of Omnipaque 350contrast was administered intravenously without complication. This exam was performed according to our departmental dose-optimization program, which includes automated exposure control, adjustment of the mA and/or kV according to patient size and/or use of iterative reconstruction technique. Total DLP is 1895.61 mGy*cm. COMPARISON: 04/27/2020 FINDINGS: Abdomen: The lung bases are clear. There is fatty infiltration of the liver. The patient is status post cholecystectomy. There is continued severe chronic left hydronephrosis despite left ureteral stent in place. Left ureteral stent extends from the left extrarenal pelvis into the bladder. There is chronic curvilinear calcification around the distal aspect of the stent within the bladder. There is a chronic 4 mm left proximal ureteral stone adjacent to the left ureteral stent at the L4-5 disc space level. There is a 6-7 mm nonobstructing stone in the lower pole of the left kidney. The solid abdominal organs are otherwise unremarkable. There is no abdominal adenopathy. There is no free fluid or free air within the abdomen. There is again noted just to the right of midline and above the level of the umbilicus a small anterior abdominal wall hernia containing small portion of small bowel. There is some new mild bowel wall thickening of the small bowel loop just proximal to the hernia with mild associated fat stranding. The appearance raises the question of early incarceration or strangulation of this hernia. Recommend surgical consultation. The abdominal portion of the GI tract is otherwise unremarkable. Pelvis: The patient is status post appendectomy. No free fluid is noted in the pelvis. There is no pelvic adenopathy. Pelvic portion of the GI tract is unremarkable. Degenerative changes are noted in the right hip. No acute bony abnormality is noted. There are small bilateral inguinal hernias containing only fat. IMPRESSION: 1. Findings raise a question of early incarceration or strangulation of the supraumbilical anterior abdominal wall hernia containing a small portion of small bowel, recommend surgical consultation. 2. Stable chronic severe left hydronephrosis despite left ureteral stent in place. There remains a 4 mm left proximal ureteral stone and chronic calcification around the distal pigtail portion of the ureteral stent within the bladder. 3. Left nephrolithiasis. 4. Fatty infiltration of the liver.
[2020-05-28 01:39] LABS: APPEARANCE,URINE SLIGHTLY-CLOUDY; BILIRUBIN,URINE NEGATIVE (NEGATIVE); COLOR,URINE YELLOW; GLUCOSE, URINE NEGATIVE (NEGATIVE); KETONES,URINE NEGATIVE (NEGATIVE); LEUKOCYTE ESTERASE,URINE TRACE (NEGATIVE); NITRITE,URINE NEGATIVE (NEGATIVE); PROTEIN,URINE 30 mg/dL (NEGATIVE); URINE SPECIFIC GRAVITY 1.013; UROBILINOGEN,URINE NEGATIVE mg/dL (<2.0)
[2020-05-28] MEDS ORDERED: MORPHINE SULFATE 10 MG/ML INJ IV ONE (02:13)
[2020-05-28] MEDS ORDERED: DICYCLOMINE HCL 20 MG TABLET PO ONE (02:24)
[2020-05-28] MEDS ORDERED: MAG HYDROX/AL HYDROX/SIMETH SUSP 30 ML UDCUP PO ONE (02:24)
[2020-05-28] MEDS ORDERED: ONDANSETRON ODT 4 MG TAB (6 TAB/ER DISP) PO PRN (02:27)
[2020-05-28 02:52] VITALS: BP 165/106
== END 2020-05-28 03:16 | disposition home or self-care (01) ==
LOC: ER 18:29
DX: K42.9 Umbilical hernia without obstruction or gangrene (principal); R10.10 Upper abdominal pain, unspecified; I10 Essential (primary) hypertension; Z90.49 Acquired absence of other specified parts of digestive tract; Z87.442 Personal history of urinary calculi
CPT/HCPCS: 99284; 96361; 96374; 36415; 83690; 85025; 80053; 81001; 74177; J3490; J2405; J7040

== ENCOUNTER 2020-07-29 17:37 | Emergency (ER) | payer SELFPAY | END 2020-07-29 19:20 | disposition left against medical advice (07) | LOC: ER 17:37 | DX: Z53.21 Procedure and treatment not carried out due to patient leaving prior to being seen by health care provider (principal) ==